=== PATIENT | female | born 1985 | race Caucasian/White ===

== ENCOUNTER 2024-06-04 06:47 | Emergency (ER) | payer MEDICAID, SELFPAY ==
[2024-06-04 06:48] VITALS: BMI 26.6
--- NOTE | 2024-06-04 07:06 | XR_ITS ---
Examination: CT abdomen and pelvis without contrast. Coronal 3-D reconstructions. Sagittal 2-D reconstructions. Date and time of exam:June 04, 2024 0752 hrs. Comparison December 03, 2023 Indications: Fever vomiting right kidney flank pain beginning 2 days ago, diagnosis kidney stones extensive bilateral staghorn calculi with right ureteral stent and 4 mm 6 mm ureteral calculi on CT stone study December 03, 2023 CTDI: vol (mGy): 11 DLP: (mGycm): 594 Technique: Axial images of the abdomen have been obtained, 3 mm slice thickness Intravenous contrast material has not been administered. Low dose protocols were performed. One or more of the following dose reduction techniques were used; automated exposure control, adjustment of the mA and/or KV according to patient size, use of iterative reconstruction technique. Findings: Liver cysts, the largest 18 mm Hepatomegaly 18 cm Borderline splenomegaly AP dimension 12 cm Contracted gallbladder No pancreatic mass Numerous bilateral renal calculi Perinephric stranding right kidney with mild right hydronephrosis Numerous right ureteral calculi, coronal image 60 measuring 2 mm, 3 mm, 3 mm, 3 mm Aorta normal size No bowel obstruction 12 mm fat-containing umbilical hernia Anteverted uterus with enlarged fundus Mild thickening of the urinary bladder wall up to 3 mm No bladder calculi Adequate bone density Impression: Numerous bilateral renal calculi Mild right hydronephrosis secondary to multiple small ureteral calculi as above Cystitis pattern
--- NOTE | 2024-06-04 07:08 | PD.EDABDPN ---
ED Abdominal Pain RME/HPI General Chief Complaint: Abdominal Pain Stated complaint: RIGHT KIDNEY PAIN, FEVER, VOMITING Time seen by provider: 06/04/24 06:52 Arrival date/time: 06/04/24 06:47 RME / HPI RME / HPI narrative: This section includes all my notes and documentations, including HPI, PE, and ED course. Bobby Palacios MD HPI: 38-year-old female here with several days of right-sided flank pain with fever and chills and bodyaches and malaise. With cough and congestion. No other complaints. ROS: All negative except as documented in HPI. Physical Exam: General: Alert and oriented. In severe pain. Eyes: Conjunctivae and lids clear. ENT: No nasal congestion. Pharynx normal. TM normal bilaterally. Neck: Supple. Heart: RRR. Lungs: No respiratory distress. Good air movement. No rhonchi, wheezing, rales. Abdomen: Soft and nontender. Normal bowel sounds. No distension. No rebound or guarding. Back: No CVA tenderness. Skin: Warm and dry. Neuro: Alert and oriented X 3. I reviewed all diagnostic test results. My interpretation of the chest x-ray is no acute findings. My review of the abdominal CT report is mildright hydronephrosis secondary to multiple small ureteral calculi and cystitis pattern. Blood tests and urine tests remarkable for WBC 19.1, LA 1.0, and bacteriuria. Influenza positive. At this point, diagnoses include pyelonephritis and ureteral stones and influenza. Treatment here included IV fluid and Zofran and Toradol and Tylenol and morphine and Rocephin. Significant improvement noted. Recommended a trial of outpatient treatment. Based on my best medical judgment, made decision no further evaluation or treatment indicated at this time. Patient understands and agrees to the discharge instructions customized and printed, see below. Discharge instructions from Dr. Palacios: 1. After evaluation, you have have right-sided kidney infection. And many little stones came out of the right kidney and you are passing them. And you have influenza. 2. Take cefdinir to kill the germs causing the infection.? Increase oral fluid to flush it out.? Maintain clear urine.? If dark or yellow, increase oral fluid. Take Tamiflu for influenza. 3. Zofran for nausea/vomiting.? Toradol 10 mg every 8 hours today and tomorrow scheduled and as needed. Tylenol with codeine for severe pain. 4. See a private doctor on 06/07/2024 for recheck.? Ask to check the final urine culture results from today to make sure cefdinir doesn't need to be changed due to resistance. 5. Seek immediate medical care with worsening, fever, or with any concerns. Bobby Palacios MD Related Data Previous Rx's ?Medication ?Instructions ?Recorded atomoxetine 40 mg capsule 40 mg PO QDAY ADHD #30 caps 10/29/23 hydrochlorothiazide 25 mg tablet 25 mg PO QDAY stone prevention #30 10/29/23 tabs tramadol 50 mg tablet 50 mg PO BID PRN pain (scale score 10/29/23 7-10) #20 tabs acetaminophen 500 mg capsule 1,000 mg (2 x 500 mg) PO Q6H PRN 12/04/23 fever or pain #30 caps ciprofloxacin HCl 500 mg tablet 500 mg PO Q12H #14 tabs 12/04/23 (Cipro) ibuprofen 800 mg tablet 800 mg PO TID PRN pain #30 tabs 12/04/23 acetaminophen 300 mg-codeine 30 mg 2 tab PO TID PRN pain #20 tabs 06/04/24 tablet cefdinir 300 mg capsule 300 mg PO BID #14 caps 06/04/24 ketorolac 10 mg tablet 10 mg PO Q8H PRN pain 5 days #14 06/04/24 tabs ondansetron 4 mg disintegrating 4 mg PO TID PRN nausea and 06/04/24 tablet vomiting 5 days #10 tabs oseltamivir 75 mg capsule (Tamiflu) 75 mg PO BID 5 days #10 caps 06/04/24 Allergies Allergy/AdvReac Type Severity Reaction Status Date / Time amoxicillin Allergy Intermediate Hives Verified 02/17/24 09:44 Penicillins Allergy Intermediate Hives Verified 02/17/24 09:44 egg Allergy Mild Nausea Verified 02/17/24 09:44 peas Allergy Mild Rash Verified 02/17/24 09:44 Course Quality Measures none Orders Category Date Time Status Bedside COVID-19 Antigen Test NOW Care 06/04/24 07:27 Active Bedside Influenza A&B Antigen Test NOW Care 06/04/24 07:[address] abdomen pelvis wo con Stat Exams 06/04/24 07:06 Completed XR chest 1V portable Stat Exams 06/04/24 07:27 Completed Blood Culture (Lab) Stat Lab 06/04/24 07:42 Received CBC Stat Lab 06/04/24 07:26 Completed CMP [Comprehensive Metabolic Panel] Stat Lab 06/04/24 07:26 Completed CRP [C-Reactive Protein] Stat Lab 06/04/24 07:26 Completed ESR [Sed Rate (ESR)] Stat Lab 06/04/24 07:26 Completed Lactate (Lactic Acid) Stat Lab 06/04/24 07:42 Completed Magnesium Stat Lab 06/04/24 07:26 Completed Procalcitonin Stat Lab 06/04/24 07:26 Completed UA, C/S IF [Urinalysis, C/S if Indicated] Stat Lab 06/04/24 07:14 Completed Urine Culture Stat Lab 06/04/24 07:14 Received Acetaminophen Ivpb [Ofirmev Inj] Med 06/04/24 07:26 Discontinued 1,000 mg in 100 ml IV NOW Ketorolac Inj [Toradol Inj] Med 06/04/24 07:05 Discontinued 30 mg IVP X1 ONE Morphine Inj Med 06/04/24 07:05 Discontinued 4 mg IVP X1 ONE Ondansetron Inj [Zofran Inj] Med 06/04/24 07:05 Discontinued 4 mg IV X1 ONE Sodium Chloride 0.9% 1000 ml [Ns] 1,000 ml Med 06/04/24 07:05 Discontinued IV 999 mls/hr Sodium Chloride 0.9% 1000 ml [Ns] 1,000 ml Med 06/04/24 08:04 Discontinued IV 999 mls/hr Sodium Chloride 0.9% 1000 ml [Ns] 1,000 ml Med 06/04/24 08:05 Discontinued IV 999 mls/hr cefTRIAXone [Rocephin] 1,000 mg Med 06/04/24 07:26 Discontinued Sodium Chloride 0.9% (P) [Ns 0.9% (P)] 50 ml IV X1 Vital Signs Vital signs: Vital Signs Temperature 100.6 F H 06/04/24 07:09 Pulse Rate 132 H 06/04/24 07:09 Respiratory Rate 22 H 06/04/24 07:09 Blood Pressure 133/82 H 06/04/24 07:09 Pulse Oximetry (%) 98 06/04/24 07:09 Oxygen Delivery Method Room Air 06/04/24 07:09 Abdominal Pain MDM Patient data External records reviewed:: [facility] previous records Clinical information provided by:: patient Social determinants that could affect healthcare access:: none Patient has the following chronic illnesses:: Recurrent kidney stones How is presenting disease/condition affected by chronic disease/condition?: exacerbated by Evaluation data The following diagnostics were reviewed and interpreted by me:: lab results and radiology exam(s) Lab and/or radiology exams considered but not ordered:: None Interpretation Summary: Pyelonephritis and ureteral stones and influenza Medications / Prescriptions Medications or Prescriptions considered but not ordered:: None Medication administrations:: Medication Administration History Discontinued Medications Sodium Chloride (Ns) 1,000 mls @ 999 mls/hr IV .Q1H1M ONE Stop: 06/04/24 08:05 Last Infusion: 06/04/24 08:35 Dose: Infused Documented By: Admin: 06/04/24 07:35 Dose: 999 mls/hr Documented By: ELIEZER Acetaminophen (Ofirmev Inj) 1,000 mg in 100 mls @ 250 mls/hr IV NOW ONE Stop: 06/04/24 07:49 Last Infusion: 06/04/24 08:45 Dose: Infused Documented By: Admin: 06/04/24 08:12 Dose: 250 mls/hr Documented By: ANTELMO Ceftriaxone Sodium 1,000 mg/ (Sodium Chloride) 50 mls @ 100 mls/hr IV X1 ONE Stop: 06/04/24 07:55 Last Infusion: 06/04/24 08:44 Dose: Infused Documented By: Admin: 06/04/24 08:14 Dose: 100 mls/hr Documented By: ANTELMO Sodium Chloride (Ns) 1,000 mls @ 999 mls/hr IV .Q1H1M ONE Stop: 06/04/24 09:04 Last Infusion: 06/04/24 09:07 Dose: Infused Documented By: Admin: 06/04/24 08:19 Dose: 999 mls/hr Documented By: ANTELMO Sodium Chloride (Ns) 1,000 mls @ 999 mls/hr IV .Q1H1M ONE Stop: 06/04/24 09:05 Last Admin: 06/04/24 09:43 Dose: 999 mls/hr Documented By: ANTELMO Ketorolac Tromethamine (Ketorolac Inj 30 Mg/Ml Vial) 30 mg IVP X1 ONE Stop: 06/04/24 07:06 Last Admin: 06/04/24 07:36 Dose: 30 mg Documented By: RD Morphine Sulfate (Morphine Sulf Inj 10 Mg/Ml Vial) 4 mg IVP X1 ONE Stop: 06/04/24 07:06 Last Admin: 06/04/24 07:36 Dose: 4 mg Documented By: RD Ondansetron HCl (Ondansetron Inj 2 Mg/Ml Inj 2 Ml) 4 mg IV X1 ONE; Protocol Stop: 06/04/24 07:06 Last Admin: 06/04/24 07:35 Dose: 4 mg Documented By: ELIEZER IV fluid and Zofran and Tylenol and Toradol and morphine and Rocephin Consultations Consultation(s) initiated? (list below): No Diagnosis Differential diagnosis abdominal pain: acute appendicitis, calculus of kidney, diverticulitis, endometriosis, gastroenteritis, small bowel obstruction and other (Sepsis, influenza, COVID, UTI, pyelonephritis) Most likely diagnosis given after review of the tests above:: Pyelonephritis and ureteral stones and influenza Admission Indicated Admission indicated?: not indicated Explain why admission is indicated or not indicated:: Admission criteria not met with significant improvement Admission Request Was there a request for admission?: No Disposition Plan Disposition Plan: Discharge Discharge Attestation Discharge Attestation: The patient and all family members were given an opportunity to ask questions and understood the discharge instructions. Discharge instructions specifically effects, indications for sooner follow up or return to the emergency department, and the expected course of current diagnosis. Patient condition: Stable Discharge Plan Plan Patient Disposition: HOME (Self Care) Prescriptions/Referrals Prescriptions/Med Rec: New acetaminophen-codeine 300-30 mg tablet 2 tab PO TID MDD 6 PRN (Reason: pain) Qty: 20 0RF ketorolac 10 mg tablet 10 mg PO Q8H PRN (Reason: pain) 5 Days Qty: 14 0RF ondansetron 4 mg tablet,disintegrating 4 mg PO TID PRN (Reason: nausea and vomiting) 5 Days Qty: 10 0RF cefdinir 300 mg capsule 300 mg PO BID Qty: 14 0RF oseltamivir [Tamiflu] 75 mg capsule 75 mg PO BID 5 Days Qty: 10 0RF No Action hydrochlorothiazide 25 mg tablet 25 mg PO QDAY Qty: 30 2RF atomoxetine 40 mg capsule 40 mg PO QDAY Qty: 30 2RF tramadol 50 mg tablet 50 mg PO BID PRN (Reason: pain (scale score 7-10)) Qty: 20 0RF acetaminophen 500 mg capsule 1,000 mg PO Q6H PRN (Reason: fever or pain) Qty: 30 0RF ibuprofen 800 mg tablet 800 mg PO TID PRN (Reason: pain) Qty: 30 0RF ciprofloxacin HCl [Cipro] 500 mg tablet 500 mg PO Q12H Qty: 14 0RF Rx Instructions: administer dose at least 2 hrs before/6 hrs after dairy products, calcium, zinc, and/or iron-containing products Referrals: Alexis ([facility]),RAQUEL Roberson [Primary Care Provider] - In 1 week Problem List Clinical Impression: Kidney infection, Kidney stone, Influenza Patient/Caregiver Discharge Instructions Discharge Activity: activity as tolerated Education Materials: ED Influenza (Adult), ED Pyelonephritis, Female (Adult), ED Kidney Stone w/ Colic Additional Instructions: Discharge instructions from Dr. Palacios: 1. After evaluation, you have have right-sided kidney infection. And many little stones came out of the right kidney and you are passing them. And you have influenza. 2. Take cefdinir to kill the germs causing the infection.? Increase oral fluid to flush it out.? Maintain clear urine.? If dark or yellow, increase oral fluid. Take Tamiflu for influenza. 3. Zofran for nausea/vomiting.? Toradol 10 mg every 8 hours today and tomorrow scheduled and as needed. Tylenol with codeine for severe pain. 4. See a private doctor on 06/07/2024 for recheck.? Ask to check the final urine culture results from today to make sure cefdinir doesn't need to be changed due to resistance. 5. Seek immediate medical care with worsening, fever, or with any concerns. Print Language: Latvian Stand Alone Forms: [employer] Info., Patient Portal Info Letter
[2024-06-04 07:09] VITALS: BP 133/82; PULSE 132; RESP 22; TEMP 38.1; O2SAT 98
--- NOTE | 2024-06-04 07:27 | XR_ITS ---
Examination: AP chest single view Technique one AP portable upright chest single view Exam date and time: June 04, 2024 0808 hrs. Comparison December 03, 2023 Indications: Shortness of breath today. Findings: Poor inspiratory effort Normal heart size Soft nodular densities in the left upper lobe which may be artifactual Right lung clear Impression: Recommend AP lordotic chest follow-up to exclude parenchymal disease in left upper lobe
[2024-06-04] MEDS: SODIUM CHLORIDE 0.9% 1000 ML 1,000 ML 999 ML IV ×3 (07:35→09:43)
[2024-06-04] MEDS: ONDANSETRON INJ 2 MG/ML INJ 2 ML 4 MG IV (07:35)
[2024-06-04] MEDS: KETOROLAC INJ 30 MG/ML VIAL IVP (07:36)
[2024-06-04] MEDS: MORPHINE SULF INJ 10 MG/ML VIAL 4 MG IVP (07:36)
[2024-06-04 07:55] LABS: Basophils # (Auto) 0.1 Thou/mm3 (0.0-0.2); Basophils % (Auto) 1 % (0-2.5); Eosinophils # (Auto) 0.1 Thou/mm3 (0.0-0.5); Eosinophils % (Auto) 1 % (0-10); Hematocrit 35.3 % (36.0-46.0); Hemoglobin 10.7 g/dL (12.0-16.0); Immature Granulocytes % (Auto) 1 % (0-0); Immature Granulocytes Auto 0.11 Thou/mm3 (0.00-0.00); Lymphocytes # (Auto) 1.5 Thou/mm3 (1.0-4.8); Lymphocytes % (Auto) 8 % (10-50); Mean Corpuscular HGB Conc 30.3 g/dl (31.0-37.0); Mean Corpuscular Hemoglobin 22.5 pg (25.0-35.0); Mean Corpuscular Volume 74 fL (80-100); Monocytes # (Auto) 1.4 Thou/mm3 (0.0-0.8); Monocytes % (Auto) 7 % (0-12); Neutrophils # (Auto) 15.9 Thou/mm3 (1.8-7.7); Neutrophils % (Auto) 83 % (37-80); Nucleated Red Blood Cell % 0 /100 WBC (0); Platelet Count 374 Thou/mm3 (140-440); RDW Standard Deviation 45.6 fL (36.4-46.3); Red Blood Count 4.76 Miln/mm3 (4.00-5.20); White Blood Count 19.1 Thou/mm3 (3.6-11.0)
[2024-06-04 08:10] LABS: Sed Rate (ESR) 74 mm/hr (0-20)
[2024-06-04] MEDS: ACETAMINOPHEN IVPB 1,000 MG/100 ML VIAL 250 MG IV (08:12)
[2024-06-04] MEDS: cefTRIAXone 1,000 MG in SODIUM CHLORIDE 0.9% (P) 50 ML 100 MG IV (08:14)
[2024-06-04 08:25] LABS: Alanine Aminotransferase 18 U/L (10-49); Albumin, Serum 5.3 gm/dL (3.5-5.0); Albumin/Globulin Ratio 1.6 (1.2-2.2); Alkaline Phosphatase 135 U/L (46-116); Anion Gap 8 (7-16); Aspartate Amino Transferase 17 U/L (0-34); BUN/Creatinine Ratio 7 Ratio (12-20); Bilirubin,Total 0.5 mg/dL (0.3-1.2); Blood Urea Nitrogen 7 mg/dL (9-23); C-Reactive Protein 6.6 mg/dL (0.0-0.9); Calcium 9.7 mg/dL (8.3-10.6); Calcium (Corrected) 9.7 mg/dL (8.5-10.1); Carbon Dioxide 24.6 mMol/L (20.0-31.0); Chloride 102 mMol/L (98-107); Estimated Creatinine Clearance 77.3 mL/min (>60); Globulin 3.4 gm/dL (2.3-3.5); Glucose 123 mg/dL (74-106); Magnesium 1.8 mg/dL (1.6-2.6); Osmolality,Calculated 269 (275-295); Potassium 3.8 mMol/L (3.4-5.1); Procalcitonin 0.18 ng/ml (0.0-0.49); Sodium 135 mMol/L (136-145); Total Protein 8.7 gm/dL (5.7-8.2); eGFR > 60 See Note
[2024-06-04 08:48] LABS: Collection Type, Urine Clean Catch
[2024-06-04 09:35] LABS: Bacteria,Urine 1+; Bilirubin,Urine Negative (Negative); Blood,Urine 2+ (Negative); Clarity,Urine Turbid (Clear/Hazy); Color,Urine Lt-Yellow (Lt Yel-Yel); Glucose, Urine Negative (Negative); Ketones,Urine Negative (Negative); Leukocyte Esterase,Urine Positive (Negative); Nitrite,Urine Negative (Negative); PH,Urine 7.5 (5.0-7.0); Protein,Urine Trace (Neg - Trace); RBC,Urine 14 /hpf (0-3); Squamous Epithelial Cell,Urine 8 /hpf (0-5); Urobilinogen,Urine Negative mg/dL (0.0-1.0); WBC,Urine 97 /hpf (0-5)
[2024-06-04 09:36] LABS: Culture Indicated,Urine Yes
[2024-06-04 11:25] VITALS: BP 121/84; PULSE 110; RESP 16; TEMP 37.1; O2SAT 96
== END 2024-06-04 11:25 | disposition home or self-care (01) ==
PROVIDERS: Emergency Provider Emergency Medicine; PCP Nurse Practitioner Family
DX: N20.2 Calculus of kidney with calculus of ureter (principal); J11.1 Influenza due to unidentified influenza virus with other respiratory manifestations
CPT/HCPCS: 36415; 71045; 74176; 80053; 81001; 83605; 83735; 84145; 85025; 85652; 86140; 87040; 87086; 87400; 87811; 96361; 96365; 96368; 96375; 99284; J0131; J0696; J1885; J2270; J2405; J7030; J7050

== ENCOUNTER 2024-10-21 17:30 | Emergency (ER) | payer MEDICAID, SELFPAY ==
[2024-10-21 17:31] VITALS: BMI 28.2
--- NOTE | 2024-10-21 17:33 | EKG_ITS ---
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
[2024-10-21 18:08] VITALS: BP 137/101; BP 152/100; PULSE 106; RESP 20; TEMP 37.5; O2SAT 100
--- NOTE | 2024-10-21 18:09 | XR_ITS ---
Examination: PA lateral chest 2 views TECHNIQUE: Upright PA and lateral chest 2 views Date and time: October 21, 2024, 1924 hours INDICATIONS: Chest pain today FINDINGS: Stable pulmonary nodule left upper lobe compared with June 04, 2024 and December 03, 2023 Normal heart size No unremarkable pneumonia or pulmonary edema IMPRESSION: No interval pneumonia or pulmonary edema
--- NOTE | 2024-10-21 18:10 | PD.EDRME ---
Rapid Medical Screening Exam RME Arrival date/time: 10/21/24 17:30 38-year-old female presents ER today for complaints of chest pain Chief Complaint: Chest Pain Time Seen by Provider: 10/21/24 18:14 Vital signs: Vital Signs Temperature 99.5 F 10/21/24 18:08 Pulse Rate 106 H 10/21/24 18:08 Respiratory Rate 20 10/21/24 18:08 Blood Pressure 152/100 H 10/21/24 18:08 Pulse Oximetry (%) 100 10/21/24 18:08 Oxygen Delivery Method Room Air 10/21/24 18:08
[2024-10-21 19:01] LABS: Basophils # (Auto) 0.1 Thou/mm3 (0.0-0.2); Basophils % (Auto) 1 % (0-2.5); Eosinophils # (Auto) 0.4 Thou/mm3 (0.0-0.5); Eosinophils % (Auto) 4 % (0-10); Hematocrit 29.9 % (36.0-46.0); Hemoglobin 9.2 g/dL (12.0-16.0); Immature Granulocytes % (Auto) 0 % (0-0); Immature Granulocytes Auto 0.02 Thou/mm3 (0.00-0.00); Lymphocytes # (Auto) 2.8 Thou/mm3 (1.0-4.8); Lymphocytes % (Auto) 27 % (10-50); Mean Corpuscular HGB Conc 30.8 g/dl (31.0-37.0); Mean Corpuscular Hemoglobin 21.8 pg (25.0-35.0); Mean Corpuscular Volume 71 fL (80-100); Monocytes % (Auto) 9 % (0-12); Neutrophils # (Auto) 6.2 Thou/mm3 (1.8-7.7); Neutrophils % (Auto) 59 % (37-80); Nucleated Red Blood Cell % 0 /100 WBC (0); Platelet Count 328 Thou/mm3 (140-440); RDW Standard Deviation 45.1 fL (36.4-46.3); Red Blood Count 4.22 Miln/mm3 (4.00-5.20); White Blood Count 10.5 Thou/mm3 (3.6-11.0)
--- NOTE | 2024-10-21 19:17 | EDNOTE_ITS ---
ED Chest Pain RME/HPI General Chief Complaint: Chest Pain Stated Complaint: CHEST PAIN, HTN, RIGHT ARM NUMBNESS, TEETH HURT Time Seen by Provider: 10/21/24 18:14 Arrival date/time: 10/21/24 17:30 RME / HPI RME / HPI narrative: 10/21/24 17:30 38-year-old female presents ER today for complaints of chest pain This section includes all my notes and documentations, including HPI, PE, and ED course. Bobby Palacios MD HPI: 38-year-old female here with 30-minute history of chest tightness and other symptoms intermittently. Symptoms can include intense fear, pounding and racing heart, sweating, chills, shaking, trouble breathing, stomach pain, nausea, numbness and tingling in the hands and feet and face, confusion, hot flashes, and feeling faint. No other complaints. ROS: All negative except as documented in HPI. Physical Exam: General: Alert and oriented. No acute distress when remaining still. High BP noted. Eyes: Conjunctivae and lids clear. ENT: No nasal congestion. Neck: Supple. Heart: RRR. Lungs: No respiratory distress. Good air movement. No rhonchi, wheezing, rales. Abdomen: Soft and nontender. Skin: Warm and dry. Neuro: Alert and oriented X 3. I reviewed all diagnostic test results. My interpretation of the EKG is sinus rhythm with no acute ST?T changes. My interpretation of the chest x-ray is NAD. Blood tests unremarkable, including their troponin. At this point, diagnoses include chest pain and high BP. Treatment here included Metoprolol. Significant improvement noted. Recommended more outpatient care. Based on my best medical judgment, made decision no further evaluation or treatment indicated at this time. Patient understands and agrees to the discharge instructions customized and printed, see below. Discharge instructions from Dr. Palacios: 1. After extensive evaluation, there is no life-threatening condition.? Such as heart attack or pulmonary embolism (blood clots in your lungs) or pneumothorax (collapsed lung). 2. Will but your BP was high and heart rate was fast. 3. Take metoprolol ER 100 mg daily. You will live longer with lower BP and slower heart rate. 4. See a private doctor on 10/24/2024. To make sure there is no serious underlying heart condition, ask to help you get more tests for your heart that cannot be done here in the ER.? Such as Holter Monitor (cardiac monitoring at home from a day to even a month), heart stress test (on treadmill or with medication), echocardiogram (imaging of your heart structures), heart catherization (checking for blockages in your heart arteries), and a referral to see a Ict Support Engineer.? Ask to help you stay healthy, with good management of your BP, helping you to prevent future heart attacks and strokes, and with regular physical exam and health maintenance. 5. Seek immediate medical care with worsening or with any concerns.?? Bobby Palacios MD Related Data Previous Rx's ?Medication ?Instructions ?Recorded atomoxetine 40 mg capsule 40 mg PO QDAY ADHD #30 caps 10/29/23 hydrochlorothiazide 25 mg tablet 25 mg PO QDAY stone p revention #30 10/29/23 tabs tramadol 50 mg tablet 50 mg PO BID PRN pain (scale score 10/29/23 7-10) #20 tabs acetaminophen 500 mg capsule 1,000 mg (2 x 500 mg) PO Q6H PRN 12/04/23 fever or pain #30 caps ciprofloxacin HCl 500 mg tablet 500 mg PO Q12H #14 tab s 12/04/23 (Cipro) ibuprofen 800 mg tablet 800 mg PO TID PRN pain #30 t abs 12/04/23 acetaminophen 300 mg-codeine 30 mg 2 tab PO TID PRN pa in #20 tabs 06/04/24 tablet cefdinir 300 mg capsule 300 mg PO BID #14 caps 06/04 metoprolol succinate 100 mg 100 mg PO QDAY #30 ea 09/24 capsule sprinkle, ext. release 24 hr Allergies Allergy/AdvReac Type Severity Reaction Status Date / Time amoxicillin Allergy Intermediate Hives Verified 10/21/24 17:33 Penicillins Allergy Intermediate Hives Verified 10/21/24 17:33 egg Allergy Mild Nausea Verified 10/21/24 17:33 peas Allergy Mild Rash Verified 10/21/24 17:33 Review of Systems Review of Systems Systems Reviewed: All systems reviewed, normal except as documented Past Medical History Past Medical History CARDIAC: Positive Hypercholesterolemia and Hypertension GENITOURINARY: Positive Genitourinary Disorders and Kidney Stones PSYCHO/SOCIAL: Positive Depression and Attention Deficit Hyperactivity Disorder Surgical History SURGICAL: Positive Tubal Ligation and Section Social History SMOKING STATUS: Current every day smoker ED Exam Narrative Physical exam: Refer to HPI above Course Course Course Narrative: CXR is ordered for determining the etiology of shortness of breath. Quality Measures none Orders Category Date Time Status EKG (ED ONLY) *Do not use* NOW Care 10/21/24 17:33 Completed EKG (ED Only) Stat Exams 10/21/24 17:33 Draft XR chest 2V Stat Exams 10/21/24 18:09 Completed BNP [B-Type Natriuretic Peptide] Stat Lab 10/21/24 18:43 Completed CBC Stat Lab 10/21/24 18:43 Completed Comprehensive Metabolic Panel Stat Lab 10/21/24 18:43 Completed Free T4 (Free Thyroxine) Stat Lab 10/21/24 18:43 Completed HCG,Qualitative Serum Stat Lab 10/21/24 18:43 Completed Lipase Stat Lab 10/21/24 18:43 Completed Magnesium Stat Lab 10/21/24 18:43 Completed Thyroid Stimulating Hormone Stat Lab 10/21/24 18:43 Completed Troponin I Stat Lab 10/21/24 18:43 Completed Metoprolol Tartrate [Lopressor] Med 10/21/24 20:02 Discontinued 50 mg PO X1 ONE Vital Signs Vital signs: Vital Signs Temperature 99.5 F 10/21/24 18:08 Pulse Rate 106 H 10/21/24 18:08 Respiratory Rate 20 10/21/24 18:08 Blood Pressure 152/100 H 10/21/24 18:08 Pulse Oximetry (%) 100 10/21/24 18:08 Oxygen Delivery Method Room Air 10/21/24 18:08 Chest Pain MDM Narrative MDM Narrative:: Scribe Attestation: Elizabeth Cheema, ruiz scribing for and in the presence of Dr. Palacios. Provider Notation: Although this document has been carefully reviewed, there may still be some phonetic and other typographical errors.? These errors are purely grammatical due to imperfections in the software program and should not be construed in any way to? compromise the substance of the patient's medical care during this visit. 38-year-old female here with 30-minute history of chest tightness and other symptoms intermittently. Symptoms can include intense fear, pounding and racing heart, sweating, chills, shaking, trouble breathing, stomach pain, nausea, numbness and tingling in the hands and feet and face, confusion, hot flashes, and feeling faint. No other complaints. Patient data External records reviewed:: [facility] previous records (Reviewed prior ED records from 06/04/24. Patient was seen for Influenza.) Clinical information provided by:: patient Social determinants that could affect healthcare access:: none Patient has the following chronic illnesses:: Hypercholesterolemia, Hypertension, Kidney Stones, Depression and Attention Deficit Hyperactivity Disorder How is presenting disease/condition affected by chronic disease/condition?: exacerbated by Evaluation data The following diagnostics were reviewed and interpreted by me:: lab results, radiology exam(s) and EKG tracing(s) Lab and/or radiology exams considered but not ordered:: None Interpretation Summary: I reviewed all diagnostic test results. My interpretation of the EKG is sinus rhythm with no acute ST?T changes. My interpretation of the chest x-ray is NAD. Blood tests unremarkable, including their troponin. Medications / Prescriptions Medications or Prescriptions considered but not ordered:: None Medication administrations:: Medication Administration History Discontinued Medications Metoprolol Tartrate (Metoprolol Tartrate 25 Mg Tablet) 50 mg PO X1 ONE Stop: 10/21/24 20:03 Last Admin: 10/21/24 20:11 Dose: 50 mg Documented By: NICKOLAS Metoprolol Consultations Consultation(s) initiated? (list below): No Diagnosis Chest Pain Differential Diagnosis: pneumothorax, stable angina, unstable angina pectoris, atypical chest pain, st elevation myocardial infarction, costochondritis, chest pain, biliary colic and other (Psychogenic) Most likely diagnosis given after review of the tests above:: Chest pain and high BP. Admission Indicated Admission indicated?: not indicated Explain why admission is indicated or not indicated:: With significant improvement, there was no indication for admission.? Admission Request Was there a request for admission?: No Disposition Plan Disposition Plan: Discharge Discharge Attestation Discharge Attestation: The patient and all family members were given an opportunity to ask questions and understood the discharge instructions. Discharge instructions specifically effects, indications for sooner follow up or return to the emergency department, and the expected course of current diagnosis. Patient condition: Stable Discharge Plan Plan Patient Disposition: HOME (Self Care) Prescriptions/Referrals Prescriptions/Med Rec: New metoprolol succinate 100 mg capsule,sprinkle,ER 24hr 100 mg PO QDAY Qty: 30 1RF No Action hydrochlorothiazide 25 mg tablet 25 mg PO QDAY Qty: 30 2RF atomoxetine 40 mg capsule 40 mg PO QDAY Qty: 30 2RF tramadol 50 mg tablet 50 mg PO BID PRN (Reason: pain (scale score 7-10)) Qty: 20 0RF acetaminophen 500 mg capsule 1,000 mg PO Q6H PRN (Reason: fever or pain) Qty: 30 0RF ibuprofen 800 mg tablet 800 mg PO TID PRN (Reason: pain) Qty: 30 0RF ciprofloxacin HCl [Cipro] 500 mg tablet 500 mg PO Q12H Qty: 14 0RF Rx Instructions: administer dose at least 2 hrs before/6 hrs after dairy products, calcium, zinc, and/or iron-containing products acetaminophen-codeine 300-30 mg tablet 2 tab PO TID MDD 6 PRN (Reason: pain) Qty: 20 0RF cefdinir 300 mg capsule 300 mg PO BID Qty: 14 0RF Referrals: No Primary/Family,Physician [Primary Care Provider] - In 1 week Problem List Clinical Impression: Chest pain Patient/Caregiver Discharge Instructions Discharge Activity: activity as tolerated Education Materials: ED Hypertension, New (Begin Treatment) Additional Instructions: Discharge instructions from Dr. Palacios: 1. After extensive evaluation, there is no life-threatening condition.? Such as heart attack or pulmonary embolism (blood clots in your lungs) or pneumothorax (collapsed lung). 2. Will but your BP was high and heart rate was fast. 3. Take metoprolol ER 100 mg daily. You will live longer with lower BP and slower heart rate. 4. See a private doctor on 10/24/2024. To make sure there is no serious underlying heart condition, ask to help you get more tests for your heart that cannot be done here in the ER.? Such as Holter Monitor (cardiac monitoring at home from a day to even a month), heart stress test (on treadmill or with medication), echocardiogram (imaging of your heart structures), heart catherization (checking for blockages in your heart arteries), and a referral to see a Ict Support Engineer.? Ask to help you stay healthy, with good management of your BP, helping you to prevent future heart attacks and strokes, and with regular physical exam and health maintenance. 5. Seek immediate medical care with worsening or with any concerns.?? Print Language: Macedonian Stand Alone Forms: Kimberly Award Info., Patient Portal Info Letter
[2024-10-21 19:19] VITALS: BP 153/102; BP 160/107; PULSE 91; RESP 19; TEMP 36.8; O2SAT 99
[2024-10-21 20:03] LABS: B-Type Natriuretic Peptide < 20 pg/mL (0-100)
[2024-10-21 20:11] VITALS: BP 146/106; PULSE 82
[2024-10-21] MEDS: METOPROLOL TARTRATE 25 MG TABLET 50 MG PO (20:11)
[2024-10-21 20:13] LABS: HCG,Qualitative Serum Negative
[2024-10-21 21:00] VITALS: BP 146/100; PULSE 72; RESP 17; TEMP 37.1; O2SAT 100
[2024-10-21 21:17] LABS: Alanine Aminotransferase 24 U/L (10-49); Albumin, Serum 4.6 gm/dL (3.5-5.0); Albumin/Globulin Ratio 1.6 (1.2-2.2); Alkaline Phosphatase 124 U/L (46-116); Anion Gap 11 (7-16); Aspartate Amino Transferase 23 U/L (0-34); BUN/Creatinine Ratio 8 Ratio (12-20); Bilirubin,Total 0.3 mg/dL (0.3-1.2); Blood Urea Nitrogen 8 mg/dL (9-23); Calcium 9.1 mg/dL (8.3-10.6); Calcium (Corrected) 9.1 mg/dL (8.5-10.1); Carbon Dioxide 25.3 mMol/L (20.0-31.0); Chloride 100 mMol/L (98-107); Estimated Creatinine Clearance 79.5 mL/min (>60); Globulin 2.9 gm/dL (2.3-3.5); Glucose 98 mg/dL (74-106); Lipase 31 U/L (12-53); Osmolality,Calculated 270 (275-295); Potassium 3.6 mMol/L (3.4-5.1); Sodium 136 mMol/L (136-145); Total Protein 7.5 gm/dL (5.7-8.2); Troponin I < 0.020 ng/mL (0.0-0.045); eGFR > 60 See Note
[2024-10-21 21:27] LABS: Magnesium 1.8 mg/dL (1.6-2.6)
[2024-10-21 21:32] LABS: Thyroid Stimulating Hormone 1.48 uIU/mL (0.55-4.78)
== END 2024-10-21 21:00 | disposition home or self-care (01) ==
PROVIDERS: Nurse Practitioner Primary Care; Emergency Provider Emergency Medicine
DX: R07.9 Chest pain, unspecified (principal); E78.00 Pure hypercholesterolemia, unspecified; I10 Essential (primary) hypertension; F17.210 Nicotine dependence, cigarettes, uncomplicated
CPT/HCPCS: 36415; 71046; 80053; 83690; 83735; 83880; 84439; 84443; 84484; 84703; 85025; 93005; 99283; A9270

== ENCOUNTER 2024-11-11 16:55 | Emergency (ER) | payer MEDICAID, SELFPAY ==
[2024-11-11 17:38] VITALS: BP 137/98; PULSE 141; RESP 18; TEMP 38.4; O2SAT 97; BMI 28.2
--- NOTE | 2024-11-11 17:48 | XR_ITS ---
Examination: PA lateral chest 2 views TECHNIQUE: Upright PA lateral chest 2 views Date and time: November 11, 2024 1804 hours Comparison October 21, 2024 INDICATIONS: Chest pain nausea vomiting beginning 2 days ago FINDINGS: Normal heart size Stable nodular parenchymal disease in the left upper lobe, noted on the chest x-ray June 04, 2024 as well as December 03, 2023 No interval pneumonia or pulmonary edema Normal heart size. IMPRESSION: No change in nodular parenchymal disease in the left upper lobe compared to chest films dating to December 03, 2023, clinical correlation advised Follow-up elective CT chest without contrast would be helpful in assessing the nature of the parenchymal disease in the left upper lobe
--- NOTE | 2024-11-11 17:48 | XR_ITS ---
Examination: CT abdomen and pelvis without contrast. Coronal 3-D reconstructions. Sagittal 2-D reconstructions. Date and time of exam:November 11, 2024 1940 hours Comparison June 04, 2024 INDICATIONS: Bilateral abdominal pain today Technique: Axial images of the abdomen have been obtained, 3 mm slice thickness Intravenous contrast material has not been administered. Low dose protocols were performed. One or more of the following dose reduction techniques were used; automated exposure control, adjustment of the mA and/or KV according to patient size, use of iterative reconstruction technique. Findings: Small benign liver cysts Contracted gallbladder No pancreatic mass Numerous bilateral renal calculi with perinephric stranding Ureteral stents noted no hydronephrosis No bowel obstruction Normal appendix Anteverted uterus No diverticulitis Air in the urinary bladder Urinary bladder wall thickening up to 4 mm IMPRESSION: Numerous bilateral renal calculi, no hydronephrosis Ureteral stents satisfactory position
--- NOTE | 2024-11-11 17:49 | EDRME_ITS ---
Rapid Medical Screening Exam [facility] Arrival date/time: 11/11/24 16:55 38-year-old female presents to the Emergency Department today with complaints of back pain, abdominal pain and fever. Patient reports having lithotripsy yesterday in [place] Chief Complaint: Nausea/Vomiting/Diarrhea Vital signs: Vital Signs Temperature 101.2 F H 11/11/24 17:38 Pulse Rate 141 H 11/11/24 17:38 Respiratory Rate 18 11/11/24 17:38 Blood Pressure 137/98 H 11/11/24 17:38 Pulse Oximetry (%) 97 11/11/24 17:38 Oxygen Delivery Method Room Air 11/11/24 17:38
[2024-11-11 17:59] VITALS: TEMP 38.4
[2024-11-11] MEDS: ACETAMINOPHEN 500 MG TABLET 1000 MG PO (17:59)
[2024-11-11] MEDS: ONDANSETRON ODT 4 MG TABRAP PO (18:12)
--- NOTE | 2024-11-11 18:12 | PC.NURSE ---
patient c/o [place], provider tashi notified, new order for zofran ODT 4mg PO x1 now. Phrmacy aware.
[2024-11-11 18:28] LABS: Collection Type, Urine Clean Catch
[2024-11-11 18:29] LABS: Lactate (Lactic Acid) 1.2 mMol/L (0.4-2.0)
[2024-11-11 18:31] LABS: Basophils % (Auto) 0 % (0-2.5); Eosinophils % (Auto) 0 % (0-10); Hematocrit 31.7 % (36.0-46.0); Hemoglobin 9.9 g/dL (12.0-16.0); Immature Granulocytes % (Auto) 0 % (0-0); Immature Granulocytes Auto 0.06 Thou/mm3 (0.00-0.00); Lymphocytes # (Auto) 0.7 Thou/mm3 (1.0-4.8); Lymphocytes % (Auto) 5 % (10-50); Mean Corpuscular HGB Conc 31.2 g/dl (31.0-37.0); Mean Corpuscular Hemoglobin 22.5 pg (25.0-35.0); Mean Corpuscular Volume 72 fL (80-100); Monocytes % (Auto) 7 % (0-12); Neutrophils # (Auto) 11.7 Thou/mm3 (1.8-7.7); Neutrophils % (Auto) 87 % (37-80); Nucleated Red Blood Cell % 0 /100 WBC (0); Platelet Count 322 Thou/mm3 (140-440); RDW Standard Deviation 49.3 fL (36.4-46.3); White Blood Count 13.5 Thou/mm3 (3.6-11.0)
[2024-11-11 18:35] LABS: Bilirubin,Urine Negative (Negative); Blood,Urine 3+ (Negative); Clarity,Urine Turbid (Clear/Hazy); Color,Urine Yellow (Lt Yel-Yel); Glucose, Urine Negative (Negative); Ketones,Urine Negative (Negative); Leukocyte Esterase,Urine Positive (Negative); Nitrite,Urine Negative (Negative); Protein,Urine 2+ (Neg - Trace); RBC,Urine 313 /hpf (0-3); Specific Gravity,Urine 1.013 (1.001-1.035); Squamous Epithelial Cell,Urine 19 /hpf (0-5); Transitional Epi Cells,Urine 1 /hpf (0-5); Urobilinogen,Urine Negative mg/dL (0.0-1.0); WBC,Urine 486 /hpf (0-5)
[2024-11-11 19:13] LABS: Alanine Aminotransferase 10 U/L (10-49); Albumin, Serum 4.5 gm/dL (3.5-5.0); Albumin/Globulin Ratio 1.7 (1.2-2.2); Alkaline Phosphatase 104 U/L (46-116); Anion Gap 10 (7-16); Aspartate Amino Transferase 19 U/L (0-34); BUN/Creatinine Ratio 5 Ratio (12-20); Bilirubin,Total 0.5 mg/dL (0.3-1.2); Blood Urea Nitrogen 9 mg/dL (9-23); Calcium 9.2 mg/dL (8.3-10.6); Calcium (Corrected) 9.2 mg/dL (8.5-10.1); Carbon Dioxide 23.5 mMol/L (20.0-31.0); Chloride 101 mMol/L (98-107); Creatinine (Component) 1.8 mg/dL (0.6-1.3); Estimated Creatinine Clearance 44.2 mL/min (>60); Globulin 2.7 gm/dL (2.3-3.5); Glucose 148 mg/dL (74-106); Lipase 25 U/L (12-53); Osmolality,Calculated 269 (275-295); Potassium 3.3 mMol/L (3.4-5.1); Procalcitonin 5.77 ng/ml (0.0-0.49); Sodium 134 mMol/L (136-145); Total Protein 7.2 gm/dL (5.7-8.2); eGFR 36 See Note
[2024-11-11 19:26] LABS: HCG,Qualitative Serum Negative
--- NOTE | 2024-11-11 21:25 | PD.EDNV ---
Nausea/Vomit./Diarrhea-RME/HPI General Chief complaint: Nausea/Vomiting/Diarrhea Stated complaint: Vomiting, fever, CHOU, anesthesia yesterday Time Seen by Provider: 11/11/24 19:23 Arrival date/time: 11/11/24 16:55 RME / HPI RME / HPI Narrative: 11/11/24 16:55 38-year-old female presents to the Emergency Department today with complaints of back pain, abdominal pain and fever. Patient reports having lithotripsy yesterday in [place] This section includes all my notes and documentations, including HPI, PE, and ED course. Bobby Palacios MD HPI: 38yo female presents to the ED for complaints of left flank pain, fever, and chills for about 12 hours. Bilateral ureteral stent placement by Dr. Blanchard in [place] yesterday, but was unable to tolerate the pain. No cough or congestion. No other complaints. ROS: All negative except as documented in HPI. Physical Exam: General: Alert and oriented. In severe pain. Fever noted. Eyes: Conjunctivae and lids clear. ENT: No nasal congestion. Neck: Supple. Heart: Tachycardia noted. Lungs: No respiratory distress. Good air movement. No rhonchi, wheezing, rales. Abdomen: Soft and nontender. Normal bowel sounds. No distension. No rebound or guarding. Back: Equivocal left CVA tenderness. Skin: Warm and dry. Neuro: Alert and oriented X 3. I reviewed all diagnostic test results. My interpretation of the chest x-ray is NAD. My review of the CT abdomen pelvis report is NAD. Blood tests remarkable for WBC 13.5, Potassium 3.3, Creatinine 1.8, Procalcitonin 5.77. UA showed 2+ protein, 313 RBC, and 486 WBC. At this point, diagnoses include sepsis, UTI, bilateral ureteral stent placement, NEGAR, and hypokalemia. Treatment here included IV fluid, Zofran, Toradol, Tylenol, morphine, Rocephin, oral potassium, and Rocephin. With no improvement, more treatment included cefepime and vancomycin and then Levophed drip. I discussed the case with our hospitalist.? About the presentation and exam and diagnostics and treatments here.? And possible need of further care in the hospital.? Declined to except the patient due to no urology service here. Waiting for Dr. Blanchard, Urology at [place], to call back. At 6 AM on 11/12/2024, the care of the patient was transferred to Dr Guadarrama. Bobby Palacios MD Related Data Previous Rx's ?Medication ?Instructions ?Recorded atomoxetine 40 mg capsule 40 mg PO QDAY ADHD #30 caps 10/29/23 hydrochlorothiazide 25 mg tablet 25 mg PO QDAY stone prevention #30 10/29/23 tabs tramadol 50 mg tablet 50 mg PO BID PRN pain (scale score 10/29/23 7-10) #20 tabs acetaminophen 500 mg capsule 1,000 mg (2 x 500 mg) PO Q6H PRN 12/04/23 fever or pain #30 caps ciprofloxacin HCl 500 mg tablet 500 mg PO Q12H #14 tabs 12/04/23 (Cipro) ibuprofen 800 mg tablet 800 mg PO TID PRN pain #30 tabs 12/04/23 acetaminophen 300 mg-codeine 30 mg 2 tab PO TID PRN pain #20 tabs 06/04/24 tablet cefdinir 300 mg capsule 300 mg PO BID #14 caps 06/04/24 metoprolol succinate 100 mg 100 mg PO QDAY #30 ea 10/21/24 capsule sprinkle, ext. release 24 hr Allergies Allergy/AdvReac Type Severity Reaction Status Date / Time amoxicillin Allergy Intermediate Hives Verified 11/11/24 17:02 Penicillins Allergy Intermediate Hives Verified 11/11/24 17:02 egg Allergy Mild Nausea Verified 11/11/24 17:02 peas Allergy Mild Rash Verified 11/11/24 17:02 Review of Systems Review of Systems Systems Reviewed: All systems reviewed, normal except as documented Past Medical History Past Medical History NEUROLOGIC: Negative Neurological Disorders CARDIAC: Positive Hypercholesterolemia and Hypertension; Negative Congestive Heart Failure RESPIRATORY: Negative Chronic Obstructive Pulmonary Disease (COPD) GASTROINTESTINAL: Negative Gastrointestinal Disorders GENITOURINARY: Positive Genitourinary Disorders and Kidney Stones; Negative Renal Disease or Polycystic Kidney Disease ENDOCRINE: Negative Diabetes Mellitus Type 1 or Diabetes Mellitus Type 2 HEMATOLOGIC: Negative Blood Disorders PSYCHO/SOCIAL: Positive Depression and Attention Deficit Hyperactivity Disorder OTHER HISTORY: Negative Autoimmune Disease, Blood Transfusions, Anesthesia Reactions or Cancer Surgical History SURGICAL: Positive Tubal Ligation and Section; Negative Cardiac Surgery or Abdominal Surgery Social History SMOKING STATUS: Current some day smoker SUBSTANCE USE: does not use ED Exam Narrative Physical exam: As noted in HPI. Course Course Course Narrative: 174: Sepsis alert initiated. Orders made at this time are congruent with ED Adult Sepsis Order List. Re-evaluation is to be completed. I evaluated the patient at 2124. NS IVF ordered at 2128. 2345: NS IVF infused. 0015: Sepsis reassessment performed consisting of lab review, vitals, physical exam including auscultation of heart, lungs, and visual evaluation of capillary refills, mucosal membranes and extremities. Patient met SIRS criteria. WBC, and pro ayo are elevated. Reassessment complete, patient is septic. Quality Measures Possible source: genitourinary Blood cultures ordered: yes Antibiotic ordered: Yes Pertinent labs: 11/11/24 18:20 Lactic Acid 1.2 mMol/L (0.4-2.0) Procalcitonin 5.77 H ng/ml (0.0-0.49) sepsis Orders Category Date Time Status Saline [Insert IV] NOW Care 11/11/24 21:[address] abdomen pelvis wo con Stat Exams 11/11/24 17:48 Completed XR chest 2V Stat Exams 11/11/24 17:48 Completed Blood Culture (Lab) Stat Lab 11/11/24 18:15 Received CBC Stat Lab 11/11/24 18:20 Completed Comprehensive Metabolic Panel Stat Lab 11/11/24 18:20 Completed Free T4 (Free Thyroxine) Stat Lab 11/12/24 05:31 Ordered HCG,Qualitative Serum Stat Lab 11/11/24 18:20 Completed Lactate (Lactic Acid) Stat Lab 11/11/24 18:20 Completed Lipase Stat Lab 11/11/24 18:20 Completed Magnesium Stat Lab 11/12/24 05:31 Ordered Procalcitonin Stat Lab 11/11/24 18:20 Completed TSH [Thyroid Stimulating Hormone] Stat Lab 11/12/24 05:31 Ordered Urinalysis Stat Lab 11/11/24 18:07 Completed Urine Culture Stat Lab 11/11/24 18:07 Received Acetaminophen Ivpb [Ofirmev Inj] Med 11/12/24 01:17 Discontinued 1,000 mg in 100 ml IV X1 Acetaminophen Tab [Tylenol ES Tab] Med 11/11/24 17:48 Discontinued 1,000 mg PO X1 ONE Acetaminophen Tab [Tylenol Tab] Med 11/12/24 03:08 Discontinued 650 mg PO X1 ONE Cefepime Inj [Maxipime Inj] 2 gm Med 11/12/24 03:08 Discontinued SODIUM CHLORIDE 0.9% (Popper) [Ns 0.9% (P)] 50 ml IV X1 Ibuprofen Tab [Motrin Tab] Med 11/12/24 03:08 Discontinued 800 mg PO X1 ONE KCL 10% Liq UDC 15 ML Med 11/11/24 21:01 Discontinued 40 meq PO X1 ONE Ketorolac Inj [Toradol Inj] Med 11/11/24 21:29 Discontinued 30 mg IVP X1 ONE Morphine Inj Med 11/12/24 01:15 Discontinued 4 mg IVP X1 ONE Norepinephrine/NS 16mg/250ml [Levophed in NS 16mg/250ml Med 11/12/24 03:05 Active ] 16 mg in 250 ml IV 0.05 mcg/kg/min Ondansetron Inj [Zofran Inj] Med 11/11/24 21:29 Discontinued 4 mg IVP X1 ONE Ondansetron Inj [Zofran Inj] Med 11/12/24 01:15 Discontinued 4 mg IVP X1 ONE Ondansetron Odt [Zofran Odt] Med 11/11/24 18:02 Discontinued 4 mg PO X1 ONE Sodium Chloride 0.9% 1000 ml [Ns] 1,000 ml Med 11/12/24 02:16 Active IV 250 mls/hr Sodium Chloride 0.9% 1000 ml [Ns] 1,000 ml Med 11/11/24 21:28 Discontinued IV 999 mls/hr Sodium Chloride 0.9% 1000 ml [Ns] 1,000 ml Med 11/11/24 21:29 Discontinued IV 999 mls/hr Sodium Chloride 0.9% 1000 ml [Ns] 1,000 ml Med 11/11/24 21:29 Discontinued IV 999 mls/hr Sodium Chloride 0.9% 1000 ml [Ns] 1,000 ml Med 11/12/24 03:58 Discontinued IV 999 mls/hr Vancomycin Inj 2,000 mg Med 11/12/24 03:08 Active Sodium Chloride 0.9% 500 ml [Ns] 500 ml IV X1 cefTRIAXone/D5w 1gm IV premix [Rocephin/D5w 1gm IV Med 11/11/24 21:28 Discontinued premix] 1 gm in 50 ml IV X1 Vital Signs Vital signs: Vital Signs Temperature 101.2 F H 11/11/24 17:38 Pulse Rate 141 H 11/11/24 17:38 Respiratory Rate 18 11/11/24 17:38 Blood Pressure 137/98 H 11/11/24 17:38 Pulse Oximetry (%) 97 11/11/24 17:38 Oxygen Delivery Method Room Air 11/11/24 17:38 Nausea/Vomiting/Diarrhea MDM Narrative MDM Narrative:: 38yo female presents to the ED for complaints of left flank pain, fever, and chills for the last few days. No radiation or migration. Notes she had a lithotripsy performed in [place] yesterday, but was unable to tolerate the pain, so she came in for evaluation. No nausea, vomiting or diarrhea. No other complaints reported. Patient data External records reviewed:: [facility] previous records (Per chart review, patient was seen here on 10/21/24 for chest pain.) Clinical information provided by:: patient Social determinants that could affect healthcare access:: none Patient has the following chronic illnesses:: HTN, HLD How is presenting disease/condition affected by chronic disease/condition?: uneffected by Evaluation data The following diagnostics were reviewed and interpreted by me:: lab results, radiology exam(s) and EKG tracing(s) Lab and/or radiology exams considered but not ordered:: none Interpretation Summary: I reviewed all diagnostic test results. My interpretation of the chest x-ray is NAD. My review of the CT abdomen pelvis report is NAD. Blood tests remarkable for WBC 13.5, Potassium 3.3, Creatinine 1.8, Procalcitonin 5.77. UA showed 2+ protein, 313 RBC, and 486 WBC. Medications / Prescriptions Medications / Prescriptions considered but not ordered:: none Medication administrations:: Medication Administration History Sodium Chloride (Ns) 1,000 mls @ 250 mls/hr IV .Q4H ONE Stop: 11/12/24 06:15 Last Infusion: 11/12/24 04:35 Dose: 250 mls/hr Documented By: Admin: 11/12/24 02:24 Dose: 250 mls/hr Documented By: DT Norepinephrine Bitartrate (Levophed In Ns 16mg/250ml) 16 mg in 250 mls @ 3.722 mls/hr IV .Q24H PRN; Protocol PRN Reason: PER PROTOCOL Stop: 12/12/24 03:04 Last Titration: 11/12/24 05:30 Dose: 0.09 mcg/kg/min, 6.7 mls/hr Documented By: Titration: 11/12/24 05:25 Dose: 0.09 mcg/kg/min, 6.7 mls/hr Documented By: Titration: 11/12/24 05:20 Dose: 0.09 mcg/kg/min, 6.7 mls/hr Documented By: Titration: 11/12/24 05:15 Dose: 0.07 mcg/kg/min, 5.211 mls/hr Documented By: Titration: 11/12/24 05:10 Dose: 0.07 mcg/kg/min, 5.211 mls/hr Documented By: Titration: 11/12/24 05:05 Dose: 0.05 mcg/kg/min, 3.722 mls/hr Documented By: Titration: 11/12/24 05:00 Dose: 0.05 mcg/kg/min, 3.722 mls/hr Documented By: Titration: 11/12/24 04:55 Dose: 0.05 mcg/kg/min, 3.722 mls/hr Documented By: Titration: 11/12/24 04:50 Dose: 0.03 mcg/kg/min, 2.233 mls/hr Documented By: Titration: 11/12/24 04:45 Dose: 0.03 mcg/kg/min, 2.233 mls/hr Documented By: Titration: 11/12/24 04:40 Dose: 0.03 mcg/kg/min, 2.233 mls/hr Documented By: Admin: 11/12/24 04:35 Dose: 0.05 mcg/kg/min, 3.722 mls/hr Documented By: DT Vancomycin HCl 2,000 mg/ (Sodium Chloride) 500 mls @ 150 mls/hr IV X1 ONE Stop: 11/12/24 06:27 Last Infusion: 11/12/24 04:35 Dose: 150 mls/hr Documented By: Admin: 11/12/24 04:01 Dose: 150 mls/hr Documented By: DT Discontinued Medications Acetaminophen (Acetaminophen 500 Mg Tablet) 1,000 mg PO X1 ONE Stop: 11/11/24 17:49 Last Admin: 11/11/24 17:59 Dose: 1,000 mg Documented By: Acetaminophen (Acetaminophen 325 Mg Tablet) 650 mg PO X1 ONE Stop: 11/12/24 03:09 Last Admin: 11/12/24 03:31 Dose: 650 mg Documented By: DT Ceftriaxone Sodium/Dextrose (Rocephin/D5w 1gm Iv Premix) 1 gm in 50 mls @ 100 mls/hr IV X1 ONE Stop: 11/11/24 21:57 Last Infusion: 11/11/24 23:11 Dose: Infused Documented By: Admin: 11/11/24 22:32 Dose: 100 mls/hr Documented By: BD Sodium Chloride (Ns) 1,000 mls @ 999 mls/hr IV .Q1H1M ONE Stop: 11/11/24 22:28 Last Infusion: 11/11/24 23:45 Dose: Infused Documented By: Admin: 11/11/24 22:32 Dose: 999 mls/hr Documented By: BD Sodium Chloride (Ns) 1,000 mls @ 999 mls/hr IV .Q1H1M ONE Stop: 11/11/24 22:29 Last Infusion: 11/11/24 23:45 Dose: Infused Documented By: Admin: 11/11/24 22:33 Dose: 999 mls/hr Documented By: BD Sodium Chloride (Ns) 1,000 mls @ 999 mls/hr IV .Q1H1M ONE Stop: 11/11/24 22:29 Last Infusion: 11/12/24 00:35 Dose: Infused Documented By: Admin: 11/11/24 23:43 Dose: 999 mls/hr Documented By: DT Acetaminophen (Ofirmev Inj) 1,000 mg in 100 mls @ 250 mls/hr IV X1 ONE Stop: 11/12/24 01:40 Last Infusion: 11/12/24 01:52 Dose: Infused Documented By: Admin: 11/12/24 01:28 Dose: 250 mls/hr Documented By: DT Cefepime HCl 2 gm/ Sodium (Chloride) 50 mls @ 100 mls/hr IV X1 ONE Stop: 11/12/24 03:37 Last Infusion: 11/12/24 04:03 Dose: Infused Documented By: Admin: 11/12/24 03:33 Dose: 100 mls/hr Documented By: DT Sodium Chloride (Ns) 1,000 mls @ 999 mls/hr IV .Q1H1M ONE Stop: 11/12/24 04:58 Last Infusion: 11/12/24 05:34 Dose: Infused Documented By: Infusion: 11/12/24 04:35 Dose: 999 mls/hr Documented By: Admin: 11/12/24 04:07 Dose: 999 mls/hr Documented By: DT Ibuprofen (Ibuprofen Tab 400 Mg Tablet) 800 mg PO X1 ONE Stop: 11/12/24 03:09 Last Admin: 11/12/24 03:31 Dose: 800 mg Documented By: DT Ketorolac Tromethamine (Ketorolac Inj 30 Mg/Ml Vial) 30 mg IVP X1 ONE Stop: 11/11/24 21:30 Last Admin: 11/11/24 22:31 Dose: 30 mg Documented By: BD Morphine Sulfate (Morphine Sulf Inj 10 Mg/Ml Vial) 4 mg IVP X1 ONE Stop: 11/12/24 01:16 Last Admin: 11/12/24 01:28 Dose: 4 mg Documented By: DT Ondansetron HCl (Ondansetron Odt 4 Mg Tabrap) 4 mg PO X1 ONE; Protocol Stop: 11/11/24 18:03 Last Admin: 11/11/24 18:12 Dose: 4 mg Documented By: Ondansetron HCl (Ondansetron Inj 2 Mg/Ml Inj 2 Ml) 4 mg IVP X1 ONE; Protocol Stop: 11/11/24 21:30 Last Admin: 11/11/24 22:31 Dose: 4 mg Documented By: BD Ondansetron HCl (Ondansetron Inj 2 Mg/Ml Inj 2 Ml) 4 mg IVP X1 ONE; Protocol Stop: 11/12/24 01:16 Last Admin: 11/12/24 01:29 Dose: 4 mg Documented By: DT Potassium Chloride (Potassium Chloride 10% 20 Meq/15 Ml Udc) 40 meq PO X1 ONE Stop: 11/11/24 21:02 Last Admin: 11/11/24 22:47 Dose: 40 meq Documented By: BD Treatment here included IV fluid, Zofran, Toradol, Tylenol, morphine, Rocephin, oral potassium, and Rocephin. With no improvement, more treatment included cefepime and vancomycin and then Levophed drip. Consultations Consultation(s) initiated? (list below): No Consultation #1 (Physician, Specialty, Details): I discussed the case with our hospitalist.? About the presentation and exam and diagnostics and treatments here.? And possible need of further care in the hospital.? Declined to except the patient due to no urology service here. Diagnosis Nausea Differential Diagnosis: dehydration and other (UTI, pyelonephritis, pneumonia, sepsis, electrolyte abnormalities) Most likely diagnosis given after review of the tests above:: At this point, diagnoses include sepsis, UTI, bilateral ureteral stent placement, NEGAR, and hypokalemia. Admission Indicated Admission indicated?: not indicated Explain why admission is indicated or not indicated:: No urologist service at this facility. Admission Request Was there a request for admission?: No Disposition Plan Disposition Plan: other (specify) (Transferred care to Dr. Guadarrama.) Critical Care Time Critical Care Time Critical Care Time: Yes Total Critical Care Time (min.): 45 Attestation: Due to a high probability of clinically significant, life threatening deterioration, the patient required my highest level of preparedness to intervene emergently and I personally spent this critical care time directly and personally managing the patient. This critical care time included obtaining a history; examining the patient; ordering and review of studies; arranging urgent treatment with development of a management plan; evaluation of patient's response to treatment; frequent reassessment; and discussions with family and other providers. It was exclusive of separately billable procedures and treating other patients and teaching time. Bobby Palacios MD Discharge Plan Prescriptions/Referrals Prescriptions/Med Rec: No Action hydrochlorothiazide 25 mg tablet 25 mg PO QDAY Qty: 30 2RF atomoxetine 40 mg capsule 40 mg PO QDAY Qty: 30 2RF tramadol 50 mg tablet 50 mg PO BID PRN (Reason: pain (scale score 7-10)) Qty: 20 0RF acetaminophen 500 mg capsule 1,000 mg PO Q6H PRN (Reason: fever or pain) Qty: 30 0RF ibuprofen 800 mg tablet 800 mg PO TID PRN (Reason: pain) Qty: 30 0RF ciprofloxacin HCl [Cipro] 500 mg tablet 500 mg PO Q12H Qty: 14 0RF Rx Instructions: administer dose at least 2 hrs before/6 hrs after dairy products, calcium, zinc, and/or iron-containing products metoprolol succinate 100 mg capsule,sprinkle,ER 24hr 100 mg PO QDAY Qty: 30 1RF acetaminophen-codeine 300-30 mg tablet 2 tab PO TID MDD 6 PRN (Reason: pain) Qty: 20 0RF cefdinir 300 mg capsule 300 mg PO BID Qty: 14 0RF Referrals: Vinod Rizzo MD [Primary Care Provider] - In 1 week Problem List Clinical Impression: Sepsis, UTI (urinary tract infection), Ureteral stent present, NEGAR (acute kidney injury), Hypokalemia Patient/Caregiver Discharge Instructions Print Language: Yi
[2024-11-11 22:18] VITALS: TEMP 37.2
[2024-11-11] MEDS: KETOROLAC INJ 30 MG/ML VIAL IVP (22:31)
[2024-11-11] MEDS: ONDANSETRON INJ 2 MG/ML INJ 2 ML 4 MG IVP (22:31)
[2024-11-11] MEDS: cefTRIAXone/D5w 1gm IV premix 1 GM/50 ML BAG IV (22:32)
[2024-11-11] MEDS: SODIUM CHLORIDE 0.9% 1000 ML 1,000 ML 999 ML IV ×3 (22:32→23:43)
[2024-11-11] MEDS: POTASSIUM CHLORIDE 10% 20 MEQ/15 ML UDC 40 MEQ PO (22:47)
[2024-11-11 23:45] VITALS: TEMP 37
[2024-11-11 23:46] VITALS: BP 119/72; PULSE 117; RESP 14; TEMP 37; O2SAT 99
[2024-11-12] VITALS (17 sets, daily range): BP systolic 74–123; BP diastolic 48–90; PULSE 98–130; RESP 14–18; TEMP 37–38.2; O2SAT 94–100
[2024-11-12] MEDS: MORPHINE SULF INJ 10 MG/ML VIAL 4 MG IVP (01:28)
[2024-11-12] MEDS: ACETAMINOPHEN IVPB 1,000 MG/100 ML VIAL 250 MG IV (01:28)
[2024-11-12] MEDS: ONDANSETRON INJ 2 MG/ML INJ 2 ML 4 MG IVP (01:29)
[2024-11-12] MEDS: SODIUM CHLORIDE 0.9% 1000 ML 1,000 ML 250 ML IV (02:24)
--- NOTE | 2024-11-12 03:24 | PC.NURSE ---
This RN asked Dr. Palacios if repeat labs were needed to be drawn on this patient. Per provider not needed at this time.
[2024-11-12] MEDS: ACETAMINOPHEN 325 MG TABLET 650 MG PO (03:31)
[2024-11-12] MEDS: IBUPROFEN TAB 400 MG TABLET 800 MG PO (03:31)
[2024-11-12] MEDS: CEFEPIME INJ 2 GM in SODIUM CHLORIDE 0.9% (Popper) 50 ML IV (03:33)
[2024-11-12] MEDS: Vancomycin Inj 2,000 MG in SODIUM CHLORIDE 0.9% 500 ML 500 ML 150 MG IV (04:01)
[2024-11-12] MEDS: SODIUM CHLORIDE 0.9% 1000 ML 1,000 ML 999 ML IV (04:07)
[2024-11-12] MEDS: Norepinephrine/NS 16mg/250ml 16 MG/250 ML BAG 3.722 MG IV (04:35)
--- NOTE | 2024-11-12 06:28 | PD.EDADDENDU ---
Emergency Room Addendum <Jeny Gomez - Last Filed: 11/12/24 10:29> Addendum Narrative: 0600: Care assumed from Dr. Palacios, the previous shift emergency physician. Past medical, surgical, social and family history reviewed. Vitals and home medications reviewed. I will assume the care of the patient at this time. Please refer to the emergency department record for history and examination from initial visit.? Physical exam by me shows patient under no acute distress at this time. Dr. Palacios discussed the case with hospitalist for possible admission and they declined the patient due to no urology service here. Waiting for Dr. Blanchard, [facility] at [place], to call back. 0812: Discussed test HPI, PMHx, lab, radiology results and/or management with Dr. Rosado. 0815: Discussed test HPI, PMHx, lab, radiology results and/or management with Dr. Jonathan Wright at [facility], who accepted the patient for transfer. 0831: Discussed test HPI, PMHx, lab, radiology results and/or management with Dr. Rosado. <Rei Guadarrama MD - Last Filed: 11/12/24 14:07> Addendum Narrative: 0600: Care assumed from Dr. Palacios, the previous shift emergency physician. Past medical, surgical, social and family history reviewed. Vitals and home medications reviewed. I will assume the care of the patient at this time. Please refer to the emergency department record for history and examination from initial visit.? Physical exam by me shows patient under no acute distress at this time. Dr. Palacios discussed the case with hospitalist for possible admission and they declined the patient due to no urology service here. Waiting for Dr. Blanchard, [facility] at [place], to call back. 0812: Discussed test HPI, PMHx, lab, radiology results and/or management with Dr. Rosado. 0815: Discussed test HPI, PMHx, lab, radiology results and/or management with Dr. Jonathan Wright at [facility], who accepted the patient for transfer. 0831: Discussed test HPI, PMHx, lab, radiology results and/or management with Dr. Rosado. Patient is a 38-year-old who was treated I assumed care at 0600 hrs. this morning for someone who is septic blood pressure was low and tachycardic. She had stents placed bilaterally 2 days ago at [facility] with Dr. Blanchard and started having fevers that night and has gotten worse since that time. Patient was given vancomycin and cefepime and Rocephin antibiotics prior to my assuming care at 0600 hrs. today. Patient is alert awake she is cooperative, lungs are clear abdomen is has no obvious tenderness. Her legs are warm and she does have a faintly palpable radial pulse. Patient is presumed septic since she has pyuria postprocedure and has chronic UTIs and as a matter fact she had Enterococcus growing on her culture we spoke to the transfer nurse at [facility]. Sometimes known as [facility]. Patient systolics were staying in the 70-80 range so I asked the nurse to titrate her more aggressively on the Levophed. My goal was to get the systolic blood pressures over 100. Patient had 2 L of fluid infused by the time I started I gave her another 2 L up to 4 got a second lactic acid came up to 2.4 from 1.2 so I initiated 2 more liters and increased the Levophed. We are trying to transfer this patient back to her doctor's care since we have no urological services here. Because she is hypotensive and somewhat unstable I contacted our critical care doctor Dr. Rosado who came down with the residents and they put in a central line in about that time [facility] called and I spoke with the nurse in detail and then they transferred to Dr. Wright who is the ER doctor there who requested central line and getting the blood pressure higher. Also both the magnesium potassium were low and replacement doses were ordered and the nurse that was going with the patient was post to administer those since the transport has arrived before the magnesium potassium could be given. At the time of transfer patient blood pressure was over 100 the Levophed had been titrated up for systolics in the low 100s. Patient had 6 L of fluid at that time. She noted a second CMP came back with interval worsening of bicarb on the CMP. Potassium was 3.0 and the magnesium was low at 1.2. Spent a lot of time talking with various specialist and arranging this transfer and managing the sepsis and hypotension. Patient was taken to [facility] for their ICU care and have urological services. Critical Care Time <Jeny Gomez - Last Filed: 11/12/24 10:29> Critical Care Time Critical Care Time: Yes Total Critical Care Time (min.): 60 Attestation: The high probability of sudden, clinically significant deterioration in the patient?s condition required the highest level of my preparedness to intervene urgently. The services I provided to this patient were to treat and/or prevent clinically significant deterioration. Services included the following: chart data review, reviewing nursing notes and/or old charts, documentation time, eyewear consultant collaboration regarding findings and treatment options, medication orders and management, direct patient care, vital sign assessments and ordering, interpreting and reviewing diagnostic studies and lab tests. Aggregate critical care time includes only time during which I was engaged in work directly related to the patient?s care, as described above, whether at bedside or elsewhere in the Emergency Department. It did not include time spent performing other reported procedures or the services of residents, students, nurses or physician assistants. Results <Jeny Gomez - Last Filed: 11/12/24 10:29> Objective Laboratory: Laboratory Last Values WBC 11.5 Thou/mm3 (3.6-11.0) H 11/12/24 06:11 RBC 3.18 Miln/mm3 (4.00-5.20) L 11/12/24 06:11 Hgb 7.2 g/dL (12.0-16.0) L D 11/12/24 06:11 Hct 23.0 % (36.0-46.0) L 11/12/24 06:11 MCV 72 fL (80-100) L 11/12/24 06:11 MCH 22.6 pg (25.0-35.0) L 11/12/24 06:11 MCHC 31.3 g/dl (31.0-37.0) 11/12/24 06:11 RDW Std Deviation 51.2 fL (36.4-46.3) H 11/12/24 06:11 Plt Count 221 Thou/mm3 (140-440) D 11/12/24 06:11 Neut % (Auto) 86 % (37-80) H 11/12/24 06:11 Lymph % (Auto) 8 % (10-50) L 11/12/24 06:11 Mills % (Auto) 6 % (0-12) 11/12/24 06:11 Eos % (Auto) 0 % (0-10) 11/12/24 06:11 Baso % (Auto) 0 % (0-2.5) 11/12/24 06:11 Neut # (Auto) 9.9 Thou/mm3 (1.8-7.7) H 11/12/24 06:11 Lymph # (Auto) 0.9 Thou/mm3 (1.0-4.8) L 11/12/24 06:11 Mills # (Auto) 0.7 Thou/mm3 (0.0-0.8) 11/12/24 06:11 Eos # (Auto) 0.0 Thou/mm3 (0.0-0.5) 11/12/24 06:11 Baso # (Auto) 0.0 Thou/mm3 (0.0-0.2) 11/12/24 06:11 Immature Gran # (Auto) 0.09 Thou/mm3 (0.00-0.00) H 11/12/24 06:11 Absolute Nucleated RBC 0.00 Thou/mm3 (0.00-0.00) 11/12/24 06:11 Immature Gran % 1 % (0-0) H 11/12/24 06:11 Nucleated RBC % 0 /100 WBC (0) 11/12/24 06:11 Sodium 134 mMol/L (136-145) L 11/11/24 18:20 Potassium 3.3 mMol/L (3.4-5.1) L 11/11/24 18:20 Chloride 101 mMol/L (98-107) 11/11/24 18:20 Carbon Dioxide 23.5 mMol/L (20.0-31.0) 11/11/24 18:20 Anion Gap 10 (7-16) 11/11/24 18:20 BUN 9 mg/dL (9-23) 11/11/24 18:20 Creatinine 1.8 mg/dL (0.6-1.3) H 11/11/24 18:20 Estim Creat Clear Calc 44.2 mL/min (>60) L 11/11/24 18:20 eGFR 36 See Note (60-) L 11/11/24 18:20 BUN/Creatinine Ratio 5 Ratio (12-20) L 11/11/24 18:20 Glucose 148 mg/dL (74-106) H 11/11/24 18:20 Calculated Osmolality 269 (275-295) L 11/11/24 18:20 Lactic Acid 2.4 mMol/L (0.4-2.0) H 11/12/24 06:11 Calcium 9.2 mg/dL (8.3-10.6) 11/11/24 18:20 Corrected Calcium 9.2 mg/dL (8.5-10.1) 11/11/24 18:20 Magnesium 1.2 mg/dL (1.6-2.6) L 11/12/24 05:52 Total Bilirubin 0.5 mg/dL (0.3-1.2) 11/11/24 18:20 AST 19 U/L (0-34) 11/11/24 18:20 ALT 10 U/L (10-49) 11/11/24 18:20 Alkaline Phosphatase 104 U/L (46-116) 11/11/24 18:20 Total Protein 7.2 gm/dL (5.7-8.2) 11/11/24 18:20 Albumin 4.5 gm/dL (3.5-5.0) 11/11/24 18:20 Globulin 2.7 gm/dL (2.3-3.5) 11/11/24 18:20 Albumin/Globulin Ratio 1.7 (1.2-2.2) 11/11/24 18:20 Lipase 25 U/L (12-53) 11/11/24 18:20 Procalcitonin 5.77 ng/ml (0.0-0.49) H 11/11/24 18:20 TSH 0.45 uIU/mL (0.55-4.78) L 11/12/24 05:52 Free T4 0.89 ng/dL (0.89-1.76) 11/12/24 05:52 HCG, Qual Negative 11/11/24 18:20 Ur Collection Type Clean Catch 11/11/24 18:07 Urine Color Yellow (Lt Yel-Yel) 11/11/24 18:07 Urine Clarity Turbid (Clear/Hazy) A 11/11/24 18:07 Urine pH 7.0 (5.0-7.0) 11/11/24 18:07 Ur Specific [place] 1.013 (1.001-1.035) 11/11/24 18:07 Urine Protein 2+ (Neg - Trace) A 11/11/24 18:07 Urine Glucose (UA) Negative (Negative) 11/11/24 18: Urine Ketones Negative (Negative) 11/11/24 18: Urine Blood 3+ (Negative) A 11/11/24 18:07 Urine Nitrite Negative (Negative) 11/11/24 18: Urine Bilirubin Negative (Negative) 11/11/24 18: Urine Urobilinogen (Auto) Negative mg/dL (0.0-1.0) 11/11/24 18:07 Ur Leukocyte Esterase Positive (Negative) 11/11/24 18:07 Urine RBC 313 /hpf (0-3) H 11/11/24 18:07 Urine WBC 486 /hpf (0-5) H 11/11/24 18:07 Ur Squamous Epith Cells 19 /hpf (0-5) H 11/11/24 18:07 Ur Transition Epith Cell 1 /hpf (0-5) 11/11/24 18:07 Urine Bacteria None (None) 11/11/24 18:07 Imaging: EKG: Dated 11/12/2024 at 0610 hours. 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 IMPRESSION: No change in nodular parenchymal disease in the left upper lobe compared to chest films dating to December 03, 2023, clinical correlation advised Follow-up elective CT chest without contrast would be helpful in assessing the nature of the parenchymal disease in the left upper lobe Dictated By: Gamaliel Elizabeth MD Procedure(s): CT abdomen pelvis [place] [facility] [place] Accession Number(s): [id number] cc: Hanane (LENI),Rubén FARRAR; Vinod Rizzo MD; Gamaliel Elizabeth MD~ Examination: CT abdomen and pelvis without contrast. Coronal 3-D reconstructions. Sagittal 2-D reconstructions. Date and time of exam:November 11, 2024 1940 hours Comparison June 04, 2024 INDICATIONS: Bilateral abdominal pain today Technique: Axial images of the abdomen have been obtained, 3 mm slice thickness Intravenous contrast material has not been administered. Low dose protocols were performed. One or more of the following dose reduction techniques were used; automated exposure control, adjustment of the mA and/or KV according to patient size, use of iterative reconstruction technique. Findings: Small benign liver cysts Contracted gallbladder No pancreatic mass Numerous bilateral renal calculi with perinephric stranding Ureteral stents noted no hydronephrosis No bowel obstruction Normal appendix Anteverted uterus No diverticulitis Air in the urinary bladder Urinary bladder wall thickening up to 4 mm IMPRESSION: Numerous bilateral renal calculi, no hydronephrosis Ureteral stents satisfactory position Dictated By: Gamaliel Elizabeth MD <Rei Guadarrama MD - Last Filed: 11/12/24 14:07> Objective Laboratory: Laboratory Last Values WBC 11.5 Thou/mm3 (3.6-11.0) H 11/12/24 06:11 RBC 3.18 Miln/mm3 (4.00-5.20) L 11/12/24 06:11 Hgb 7.2 g/dL (12.0-16.0) L D 11/12/24 06:11 Hct 23.0 % (36.0-46.0) L 11/12/24 06:11 MCV 72 fL (80-100) L 11/12/24 06:11 MCH 22.6 pg (25.0-35.0) L 11/12/24 06:11 MCHC 31.3 g/dl (31.0-37.0) 11/12/24 06:11 RDW Std Deviation 51.2 fL (36.4-46.3) H 11/12/24 06:11 Plt Count 221 Thou/mm3 (140-440) D 11/12/24 06:11 Neut % (Auto) 86 % (37-80) H 11/12/24 06:11 Lymph % (Auto) 8 % (10-50) L 11/12/24 06:11 Mills % (Auto) 6 % (0-12) 11/12/24 06:11 Eos % (Auto) 0 % (0-10) 11/12/24 06:11 Baso % (Auto) 0 % (0-2.5) 11/12/24 06:11 Neut # (Auto) 9.9 Thou/mm3 (1.8-7.7) H 11/12/24 06:11 Lymph # (Auto) 0.9 Thou/mm3 (1.0-4.8) L 11/12/24 06:11 Mills # (Auto) 0.7 Thou/mm3 (0.0-0.8) 11/12/24 06:11 Eos # (Auto) 0.0 Thou/mm3 (0.0-0.5) 11/12/24 06:11 Baso # (Auto) 0.0 Thou/mm3 (0.0-0.2) 11/12/24 06:11 Immature Gran # (Auto) 0.09 Thou/mm3 (0.00-0.00) H 11/12/24 06:11 Absolute Nucleated RBC 0.00 Thou/mm3 (0.00-0.00) 11/12/24 06:11 Immature Gran % 1 % (0-0) H 11/12/24 06:11 Nucleated RBC % 0 /100 WBC (0) 11/12/24 06:11 Sodium 134 mMol/L (136-145) L 11/11/24 18:20 Potassium 3.3 mMol/L (3.4-5.1) L 11/11/24 18:20 Chloride 101 mMol/L (98-107) 11/11/24 18:20 Carbon Dioxide 23.5 mMol/L (20.0-31.0) 11/11/24 18:20 Anion Gap 10 (7-16) 11/11/24 18:20 BUN 9 mg/dL (9-23) 11/11/24 18:20 Creatinine 1.8 mg/dL (0.6-1.3) H 11/11/24 18:20 Estim Creat Clear Calc 44.2 mL/min (>60) L 11/11/24 18:20 eGFR 36 See Note (60-) L 11/11/24 18:20 BUN/Creatinine Ratio 5 Ratio (12-20) L 11/11/24 18:20 Glucose 148 mg/dL (74-106) H 11/11/24 18:20 Calculated Osmolality 269 (275-295) L 11/11/24 18:20 Lactic Acid 2.4 mMol/L (0.4-2.0) H 11/12/24 06:11 Calcium 9.2 mg/dL (8.3-10.6) 11/11/24 18:20 Corrected Calcium 9.2 mg/dL (8.5-10.1) 11/11/24 18:20 Magnesium 1.2 mg/dL (1.6-2.6) L 11/12/24 05:52 Total Bilirubin 0.5 mg/dL (0.3-1.2) 11/11/24 18:20 AST 19 U/L (0-34) 11/11/24 18:20 ALT 10 U/L (10-49) 11/11/24 18:20 Alkaline Phosphatase 104 U/L (46-116) 11/11/24 18:20 Total Protein 7.2 gm/dL (5.7-8.2) 11/11/24 18:20 Albumin 4.5 gm/dL (3.5-5.0) 11/11/24 18:20 Globulin 2.7 gm/dL (2.3-3.5) 11/11/24 18:20 Albumin/Globulin Ratio 1.7 (1.2-2.2) 11/11/24 18:20 Lipase 25 U/L (12-53) 11/11/24 18:20 Procalcitonin 5.77 ng/ml (0.0-0.49) H 11/11/24 18:20 TSH 0.45 uIU/mL (0.55-4.78) L 11/12/24 05:52 Free T4 0.89 ng/dL (0.89-1.76) 11/12/24 05:52 HCG, Qual Negative 11/11/24 18:20 Ur Collection Type Clean Catch 11/11/24 18:07 Urine Color Yellow (Lt Yel-Yel) 11/11/24 18:07 Urine Clarity Turbid (Clear/Hazy) A 11/11/24 18:07 Urine pH 7.0 (5.0-7.0) 11/11/24 18:07 Ur Specific [place] 1.013 (1.001-1.035) 11/11/24 18:07 Urine Protein 2+ (Neg - Trace) A 11/11/24 18:07 Urine Glucose (UA) Negative (Negative) 11/11/24 18:07 Urine Ketones Negative (Negative) 11/11/24 18:07 Urine Blood 3+ (Negative) A 11/11/24 18:07 Urine Nitrite Negative (Negative) 11/11/24 18:07 Urine Bilirubin Negative (Negative) 11/11/24 18:07 Urine Urobilinogen (Auto) Negative mg/dL (0.0-1.0) 11/11/24 18:07 Ur Leukocyte Esterase Positive (Negative) 11/11/24 18:07 Urine RBC 313 /hpf (0-3) H 11/11/24 18:07 Urine WBC 486 /hpf (0-5) H 11/11/24 18:07 Ur Squamous Epith Cells 19 /hpf (0-5) H 11/11/24 18:07 Ur Transition Epith Cell 1 /hpf (0-5) 11/11/24 18:07 Urine Bacteria None (None) 11/11/24 18:07
--- NOTE | 2024-11-12 06:39 | PC.NURSE ---
[id number] CONTACTED IMAGES SENT PKT SENT.
[2024-11-12 06:42] LABS: Free T4 (Free Thyroxine) 0.89 ng/dL (0.89-1.76); Magnesium 1.2 mg/dL (1.6-2.6); Thyroid Stimulating Hormone 0.45 uIU/mL (0.55-4.78)
[2024-11-12 06:43] LABS: Lactate (Lactic Acid) 2.4 mMol/L (0.4-2.0)
[2024-11-12 06:53] LABS: Basophils % (Auto) 0 % (0-2.5); Eosinophils % (Auto) 0 % (0-10); Immature Granulocytes % (Auto) 1 % (0-0); Immature Granulocytes Auto 0.09 Thou/mm3 (0.00-0.00); Lymphocytes # (Auto) 0.9 Thou/mm3 (1.0-4.8); Lymphocytes % (Auto) 8 % (10-50); Mean Corpuscular HGB Conc 31.3 g/dl (31.0-37.0); Mean Corpuscular Hemoglobin 22.6 pg (25.0-35.0); Mean Corpuscular Volume 72 fL (80-100); Monocytes # (Auto) 0.7 Thou/mm3 (0.0-0.8); Monocytes % (Auto) 6 % (0-12); Neutrophils # (Auto) 9.9 Thou/mm3 (1.8-7.7); Neutrophils % (Auto) 86 % (37-80); Nucleated Red Blood Cell % 0 /100 WBC (0); Platelet Count 221 Thou/mm3 (140-440); RDW Standard Deviation 51.2 fL (36.4-46.3); Red Blood Count 3.18 Miln/mm3 (4.00-5.20); White Blood Count 11.5 Thou/mm3 (3.6-11.0)
[2024-11-12 07:09] LABS: Hemoglobin 7.2 g/dL (12.0-16.0)
[2024-11-12 07:26] LABS: Alanine Aminotransferase 12 U/L (10-49); Albumin, Serum 3.1 gm/dL (3.5-5.0); Albumin/Globulin Ratio 2.1 (1.2-2.2); Alkaline Phosphatase 67 U/L (46-116); Anion Gap 10 (7-16); Aspartate Amino Transferase 31 U/L (0-34); BUN/Creatinine Ratio 7 Ratio (12-20); Bilirubin,Total 0.4 mg/dL (0.3-1.2); Blood Urea Nitrogen 13 mg/dL (9-23); Calcium (Corrected) 7.6 mg/dL (8.5-10.1); Carbon Dioxide 17.9 mMol/L (20.0-31.0); Chloride 110 mMol/L (98-107); Creatinine (Component) 1.9 mg/dL (0.6-1.3); Estimated Creatinine Clearance 41.8 mL/min (>60); Globulin 1.5 gm/dL (2.3-3.5); Glucose 156 mg/dL (74-106); Osmolality,Calculated 278 (275-295); Sodium 138 mMol/L (136-145); Total Protein 4.6 gm/dL (5.7-8.2); eGFR 34 See Note
[2024-11-12 07:28] LABS: Calcium 6.9 mg/dL (8.3-10.6)
--- NOTE | 2024-11-12 07:30 | PC.NURSE ---
Pt refuses order for barrett cath. Bedside commode placed at bedside with measuring hat. Pt asked to use call light each time she needs to use bedside commode to assist and assess urine output.
[2024-11-12 07:53] LABS: Collection Type, Urine Catheter
[2024-11-12 08:13] LABS: Bilirubin,Urine Negative (Negative); Blood,Urine 3+ (Negative); Clarity,Urine Turbid (Clear/Hazy); Color,Urine Yellow (Lt Yel-Yel); Glucose, Urine Negative (Negative); Ketones,Urine Negative (Negative); Leukocyte Esterase,Urine Positive (Negative); Nitrite,Urine Negative (Negative); Protein,Urine 2+ (Neg - Trace); RBC,Urine 207 /hpf (0-3); Specific Gravity,Urine 1.017 (1.001-1.035); Squamous Epithelial Cell,Urine 6 /hpf (0-5); Urobilinogen,Urine Negative mg/dL (0.0-1.0); WBC,Urine 511 /hpf (0-5)
--- NOTE | 2024-11-12 08:15 | PC.NURSE ---
PER DR LORENZO, TITRATE LEVOPHED TILL SBP IS GREATER THAN 95.
--- NOTE | 2024-11-12 08:30 | PC.NURSE ---
DR. FREIRE AND DR. MEAD AT BEDSIDE TO PERFORM CENTRAL LINE PLACEMENT. CONSENT FORM SIGNED.
--- NOTE | 2024-11-12 08:40 | PC.NURSE ---
PT accepted to [facility]. Dr. Jonathan Wright accepts [phone], request to call with bp Prior to transport.
--- NOTE | 2024-11-12 09:00 | ESOP_ITS ---
<Statement entered by Alejandro Rosado MD - 11/13/24 13:50> Attending attestation: I was present for entire procedure. Patient tolerated procedure well with no immediate complications. Follow-up chest x-ray to determine adequate placement and exclude presence of pneumothorax when available. Procedures Procedure Date / Time 11/12/24 0952 Procedure Narrative Procedure Narrative: PROCEDURE: Right IJ vascular catheter INDICATION: Levophed infusion for septic shock PROCEDURE DIABETES TERRITORY MANAGER : Dr Wise ATTENDING PHYSICIAN : Dr Rosado CONSENT : Informed consent was obtained from patient, with discussion regarding the procedure, or treatment including: a. Nature of the procedure or treatment and who will perform the procedure or treatment b. Necessity for procedure and the possible benefits. c. Risks and complications (most common and serious) d. Alternative treatments and the risks, benefits and side effects of each (including no treatment). e. Likelihood of the patient achieving his/her goals without this procedure and surgery treatment f. Problems that might occur during the recuperation g. Conflicts of interest, if any PROCEDURE SUMMARY: The Central Line Venous Catheter Insertion Practices form was completed. Starting with the first handwash prior to starting sterile technique. A time out was performed . My hands were washed immediately prior to the procedure. I wore a surgical cap, mask with protective eyewear, full gown and sterile gloves throughout the procedure. The patient was placed in Trendelenburg position. RIGHT chest region was prepped using chlorhexidine scrub and draped in sterile fashion using a full drape and sterile probe cover and sterile gel employed. The medial and lateral heads of the sternocliedomastoid muscle were identified as was the carotid pulse. The Right Internal Jugular vein was identified using the ultrasound. Anesthesia was achieved over the vein using 1% lidocaine. Using real-time out of plane guidance, the introducer needle was inserted into the Right Internal Jugular Vein by ultrasound. A small incision was made at the skin surface with a scalpel and the introducer needle was exchanged for a dilator over the guidewire. After appropriate dilation was obtained, the dilator was exchanged over the wire for a central venous catheter. The wire was removed and the catheter was sutured in place at 0.2 - 0.3 cm. A sterile sobraview shield was placed over the catheter at the insertion site. The patient tolerated the procedure without any hemodynamic compromise. At time of procedure completion, all ports aspirated and flushed properly. Estimated blood loss is ~ 5 ml. Post-procedure chest x-ray confirmed appropriate placement Under the supervision of my attending Dr Alonzo Wise MD ([id number])
--- NOTE | 2024-11-12 09:06 | XR_ITS ---
Examination: AP chest single view Technique: AP portable semiupright chest single view Date and time: November 12, 2024 0916 hrs. Comparison November 11, 2024 Indications: Post central line placement Findings: Right internal jugular central line tip SVC satisfactory position Mild enlargement cardiac contour Vascular congestion Impression: Right internal jugular central line tip SVC satisfactory position
--- NOTE | 2024-11-12 09:27 | PD.RESCONSUL ---
HPI Data of Consult Patient: new to practice Consult date: 11/12/24 Requesting Physician: Dr. Rei Young Attending Provider: Dr. Alejandro Rosado Primary Care Provider: Vinod Rizzo MD Consult Narrative Reason for consult: Septic Shock History of present illness: REASON FOR CONSULTATION: Septic shock secondary to pyelolonephritis due to b/l ureteral stents ESTABLISHED DIAGNOSES: 1. History of b/l renal calculi s/p b/l ureteral stents HISTORY OF PRESENT ILLNESS : Patient 38-year-old female with past medical history of medullary sponge kidney and numerous bilateral renal calculi s/p lithotripsy and B/R ureteral stents placed 2 days ago at [facility] presenting today with bilateral flank pain and fever. According to the patient after her procedure 2 days ago she went home and started to develop flank pain associated with subjective fever. Also associated nausea and decreased urine output, denied any vomiting, diarrhea, chest pain/pressure or palpitations. ED course: BP 115/90, pulse 141 , RR 18, temp 101.2 F, SpO2 97% on room air Subsequently patient became hypotensive with maps less than 65 and had to be started on Levophed infusion. In the ED patient received acetaminophen 1 g p.o. x 1, ondansetron 4 Mg p.o. x 2, ketorolac 30 Mg IV x 1, ceftriaxone 1 g IV x 1, normal saline 6L IVF bolus, magnesium sulfate 4 g IV x 1 and KCl 40 mEq p.o. x 1. HOME MEDICATIONS: 1. Metoprolol XL mg p.o. daily 100 2. Macrobid 100 Mg p.o. twice daily LABS: Hb 7.2, HCT 23, WBC 11.5, K3, bicarb 17.9, BUN 13, CR 1.9, LA 2.9, corrected calcium 7.6, Mg 1.2. IMAGING : Abdomen/pelvis CT showed numerous bilateral renal calculi with perinephric stranding, bilateral ureteral stents. No hydronephrosis This x-ray showed no signs of pulmonary edema, consolidation. RIJ catheter in situ, satisfactory position. IMPRESSION: 1. Septic shock secondary to pyelonephritis due to infected B/L ureteral stent RECOMMENDATION: For RIJ central line placement to continue Levophed infusion. Recommend urgent transfer to [facility] for urology consultation/intervention cc:: cc: Review of Systems Review of Systems Narrative Review of Systems: GENERAL: As above HEENT: Denies headaches or visual changes. Denies discharge. Neuro: Denies unusual weakness or difficulty speaking. CARDIO: Denies chest pain or palpitations. PULM: Denies SOB, coughing or wheezing. GI: As above URO: As above E LEARNING DEVELOPER: Denies menstrual changes, hot flashes. MSK/EXT/SKIN: Denies joint/skeletal/muscle pain, issues/changes in upper or lower extremities, itchiness, or superficial pain. PSYCH: Cooperative, pleasant mood & affect. The rest of the review of systems is otherwise negative. Exam Vital Signs Temp Pulse Resp BP Pulse Ox O2 Del Method 98.7 F 108 H 17 90/66 97 Room Air 11/12/24 09:00 11/12/24 09:00 11/12/24 09:00 11/12/24 09:00 11/12/24 09:00 11/12/24 09:00 Narrative Exam Constitutional Alert, oriented x 3 and mild distress. Young female HEENT Vision grossly intact. Patent nares. Trachea midline Respiratory Chest normal on inspection and clear auscultation bilaterally Cardiovascular S1 and S2 audible, RRR. No murmurs carotid bruit. No gross JVD. Abdominal Soft and non tender to palpation in all quadrants. BS + Genitourinary No bladder tenderness, no flank pain. Bilateral flank tenderness. Musculoskeletal Extremities tone within normal limits. No LE edema. Neurological CN II - XII grossly intact. Extremity motor and sensation grossly intact. Skin Warm, dry and intact. No apparent lesions. Psychiatric Patient has sad affect, is cooperative Results Labs 11/12/24 06:11 11/12/24 06:11 Labs: Short CBC 11/11/24 11/12/24 Range/Units 18:20 06:11 WBC 13.5 H 11.5 H (3.6-11.0) Thou/mm3 Hgb 9.9 L 7.2 L D (12.0-16.0) g/dL Hct 31.7 L 23.0 L (36.0-46.0) % Plt Count 322 221 D (140-440) Thou/mm3 BMP 11/11/24 11/12/24 18:20 06:11 Sodium 134 L 138 Potassium 3.3 L 3.0 L Chloride 101 110 H Carbon Dioxide 23.5 17.9 L BUN 9 13 Creatinine 1.8 H 1.9 H Glucose 148 H 156 H Calcium 9.2 6.9 L D Liver Function 11/11/24 11/12/24 Range/Units 18:20 06:11 Total Bilirubin 0.5 0.4 (0.3-1.2) mg/dL AST 19 31 (0-34) U/L ALT 10 12 (10-49) U/L Alkaline Phosphatase 104 67 D (46-116) U/L Albumin 4.5 3.1 L D (3.5-5.0) gm/dL Urine 11/11/24 11/12/24 Range/Units 18:07 07:27 Urine Color Yellow Yellow (Lt Yel-Yel) Urine Clarity Turbid A Turbid A (Clear/Hazy) Urine pH 7.0 7.0 (5.0-7.0) Ur Specific [place] 1.013 1.017 (1.001-1.035) Urine Protein 2+ A 2+ A (Neg - Trace) Urine Glucose (UA) Negative Negative (Negative) Quality Measures Quality Measures sepsis Current suspected stage: septic shock (LA >4 and/or hypotension) IVF 30 ml/kg given for lactic acid >4 and/or hypotension: yes Vasopressors initiated: Yes Sepsis reassessment completed at (date): 11/12/24 Sepsis reassessment completed at (time): 09:52 Possible source: genitourinary Blood cultures ordered: yes Antibiotic ordered: Yes Medications Home Medications and Allergies Allergies Allergy/AdvReac Type Severity Reaction Status Date / Time amoxicillin Allergy Intermediate Hives Verified 11/11/24 17:02 Penicillins Allergy Intermediate Hives Verified 11/11/24 17:02 egg Allergy Mild Nausea Verified 11/11/24 17:02 peas Allergy Mild Rash Verified 11/11/24 17:02 Visit Medications Norepinephrine Bitartrate (Levophed In Ns 16mg/250ml) 16 mg in 250 mls @ 3.722 mls/hr IV .Q24H PRN; Protocol PRN Reason: PER PROTOCOL Stop: 12/12/24 03:04 Last Titration: 11/12/24 09:00 Dose: 0.19 mcg/kg/min, 14.144 mls/hr Discontinued Medications Acetaminophen (Acetaminophen 500 Mg Tablet) 1,000 mg PO X1 ONE Stop: 11/11/24 17:49 Last Admin: 11/11/24 17:59 Dose: 1,000 mg Acetaminophen (Acetaminophen 325 Mg Tablet) 650 mg PO X1 ONE Stop: 11/12/24 03:09 Last Admin: 11/12/24 03:31 Dose: 650 mg Ceftriaxone Sodium/Dextrose (Rocephin/D5w 1gm Iv Premix) 1 gm in 50 mls @ 100 mls/hr IV X1 ONE Stop: 11/11/24 21:57 Last Infusion: 11/11/24 23:11 Dose: Infused Sodium Chloride (Ns) 1,000 mls @ 999 mls/hr IV .Q1H1M ONE Stop: 11/11/24 22:28 Last Infusion: 11/11/24 23:45 Dose: Infused Sodium Chloride (Ns) 1,000 mls @ 999 mls/hr IV .Q1H1M ONE Stop: 11/11/24 22:29 Last Infusion: 11/11/24 23:45 Dose: Infused Sodium Chloride (Ns) 1,000 mls @ 999 mls/hr IV .Q1H1M ONE Stop: 11/11/24 22:29 Last Infusion: 11/12/24 00:35 Dose: Infused Acetaminophen (Ofirmev Inj) 1,000 mg in 100 mls @ 250 mls/hr IV X1 ONE Stop: 11/12/24 01:40 Last Infusion: 11/12/24 01:52 Dose: Infused Sodium Chloride (Ns) 1,000 mls @ 250 mls/hr IV .Q4H ONE Stop: 11/12/24 06:15 Last Infusion: 11/12/24 07:30 Dose: Infused Cefepime HCl 2 gm/ Sodium (Chloride) 50 mls @ 100 mls/hr IV X1 ONE Stop: 11/12/24 03:37 Last Infusion: 11/12/24 04:03 Dose: Infused Vancomycin HCl 2,000 mg/ (Sodium Chloride) 500 mls @ 150 mls/hr IV X1 ONE Stop: 11/12/24 06:27 Last Infusion: 11/12/24 08:13 Dose: Infused Sodium Chloride (Ns) 1,000 mls @ 999 mls/hr IV .Q1H1M ONE Stop: 11/12/24 04:58 Last Infusion: 11/12/24 05:34 Dose: Infused Ibuprofen (Ibuprofen Tab 400 Mg Tablet) 800 mg PO X1 ONE Stop: 11/12/24 03:09 Last Admin: 11/12/24 03:31 Dose: 800 mg Ketorolac Tromethamine (Ketorolac Inj 30 Mg/Ml Vial) 30 mg IVP X1 ONE Stop: 11/11/24 21:30 Last Admin: 11/11/24 22:31 Dose: 30 mg Morphine Sulfate (Morphine Sulf Inj 10 Mg/Ml Vial) 4 mg IVP X1 ONE Stop: 11/12/24 01:16 Last Admin: 11/12/24 01:28 Dose: 4 mg Ondansetron HCl (Ondansetron Odt 4 Mg Tabrap) 4 mg PO X1 ONE; Protocol Stop: 11/11/24 18:03 Last Admin: 11/11/24 18:12 Dose: 4 mg Ondansetron HCl (Ondansetron Inj 2 Mg/Ml Inj 2 Ml) 4 mg IVP X1 ONE; Protocol Stop: 11/11/24 21:30 Last Admin: 11/11/24 22:31 Dose: 4 mg Ondansetron HCl (Ondansetron Inj 2 Mg/Ml Inj 2 Ml) 4 mg IVP X1 ONE; Protocol Stop: 11/12/24 01:16 Last Admin: 11/12/24 01:29 Dose: 4 mg Potassium Chloride (Potassium Chloride 10% 20 Meq/15 Ml Udc) 40 meq PO X1 ONE Stop: 11/11/24 21:02 Last Admin: 11/11/24 22:47 Dose: 40 meq Assessment & Plan Plan Patient 38-year-old female with past medical history of medullary sponge kidney and numerous bilateral renal calculi s/p lithotripsy and B/R ureteral stents placed 2 days ago at [facility] presenting today with bilateral flank pain and fever. ICU team was consulted for septic shock secondary to pyelonephritis due to bilateral ureteral stent. NEURO No acute problems CVS Septic shock secondary to pyelonephritis due to infected ureteral stent DDx: Pyelonephritis, infected ureteral stents Dx: MAP less than 65. Source of infection pyelonephritis requiring Levophed infusion to maintain SBP >100. Lactic acid 2 point Rx: Patient received 6L IVF bolus. Continue Levophed infusion, titrate as necessary. Transfer to [facility] FOR urology consultation/intervention PULM No acute problems GI/Hep Nausea DDx: Secondary to sepsis Rx: Recommend ondansetron 4 Mg IV every 4 hourly as needed RENAL Acute kidney injury prerenal versus renal DDx: Secondary to shock, dehydration, obstruction Dx: CR 1.9 on admission. Baseline 1 Rx: Continue Levophed infusion. For transfer for urology intervention to relieve obstruction Lactic acidosis Due to sepsis. Continue to trend lactic Hypokalemia Hypomagnesemia Hypocalcemia DDx: Likely dilutional DX: K3, Mg 1.2, corrected calcium 7.6 Rx: Calcium carbonate 1 tab x 1, magnesium sulfate 4 g IV x 1, KCl 60 mEq p.o. x 1. HEME/ONC Microcytic anemia DDx: PENNY,dilutional, blood loss, anemia of chronic disease Dx: Hb 9.9?>7.2. Patient received 6L IVF bolus, most likely dilutional on top of pre-existing PENNY/anemia ( Rx: Continue to monitor for signs of bleeding on CBC Leukocytosis DDx: Sepsis, pyelonephritis Dx: WBC 13.5?>11.5 Rx: See ID ENDO No acute problems ID Subjective secondary to pyelonephritis due to infected ureteral stent Received cefepime and vancomycin in the ED. MSK/DERM No acute problems Plan of care discussed with Attending Dr. Alonzo Wise MD PGY 1 Disclaimer: This note was dictated by speech recognition. Minor errors in master coast[employer] yacht may be present due to voice recognition software. Attending Provider Attestation/Addendum Patient seen and examined with above resident, Jordin Wise MD. I agree with the findings, assessment, and plan of care as documented except for any differences below. Patient seen in the emergency department with septic shock secondary to urinary tract infection with bilateral ureteral stent placement. Patient with known history of medullary sponge kidney with frequent renal calculi warranting placement of stents recently. Patient adequately volume resuscitated with bedside ultrasound showing dilated vasculature suggesting no need for additional volume resuscitation. She is requiring vasopressors for blood pressure support to maintain MAP greater than 65 and goal of keeping systolic greater than 100. Patient was able to tolerate placement of right IJ central line which will be used for transport. Patient has been accepted back at prior facility where urology care was being done in [place]. Patient will be transferred from ER to ER as we do not have the same urologic services or interventional radiology services available at our hospital at this time and for continuity of care. Will remain available for any assistance required by the emergency department prior to her transfer. I did adjust orders to ensure adequate hemodynamics for safe transfer and at this point she does not need vasopressor. Appropriate antibiotics have been started. Total critical care time: I personally spent 30 minutes for review of physiologic parameters, directing plan of care throughout morning, coordination of care with other subspecialist, and counseling patient at bedside. This is exclusive of time spent teaching of staff or performing separate billable procedures. Patient required critical care services for septic shock secondary to pyelonephritis. She remains at significant risk for further morbidity and mortality warranting close monitoring and care.
[2024-11-12] MEDS: Norepinephrine/NS 16mg/250ml 16 MG/250 ML BAG 18.611 MG IV (09:30)
[2024-11-12 09:41] LABS: Reflex Lactate? Y
--- NOTE | 2024-11-12 09:58 | PC.CM ---
0930 Packet completed and CD made and given to Gurpreet charge nurse. I called [facility] and set up transport. Pickup time set for 1030. 0913 I spoke to Gurpreet charge nurse to see if patient can go with ride along or does she need air transport. Dr. Lozano stated patient could go with ride along. supervisor burling and joining called in a nurse for a ride along. 0911 I spoke to Ivy transfer nurse at [facility]. She states patient was accepted by Dr. Blanchard and Dr. Wright. Ivy the transfer nurse states they wanted patient to have a central line placed and to have patient continued on Levophed. 0835 Patient needs transfer to [facility] for continuum of care with Dr. Blanchard (Urology). I spoke to the transfer nurse to follow up because ED had already contacted [facility]. I faxed over paperwork.
[2024-11-12 10:09] LABS: Lactic Acid, 3 HR 2.1 mMol/L (0.4-2.0)
--- NOTE | 2024-11-12 10:10 | PC.NURSE ---
EMS HERE TO TRANSFER PT TO [facility]. REPORT GIVEN TO SIVAKUMAR GONSALES FOR TRANSFER AND CALLED TO JUAN MANUEL GONSALES WITH [facility].
[2024-11-12] MEDS: Magnesium Sulfate 4 GM Ivpb 4 GM/50 ML BAG IV (10:27)
[2024-11-12 12:31] LABS: HIV (1&2) Antibody Rapid Non-Reactive
== END 2024-11-12 10:30 | disposition short-term general hospital (02) ==
PROVIDERS: Emergency Medicine; Nurse Practitioner Primary Care; Emergency Provider Emergency Medicine; PCP Family Medicine
DX: A41.9 Sepsis, unspecified organism (principal); N17.9 Acute kidney failure, unspecified; N12 Tubulo-interstitial nephritis, not specified as acute or chronic; E87.6 Hypokalemia; R91.1 Solitary pulmonary nodule; N20.0 Calculus of kidney; Z96.0 Presence of urogenital implants; Z75.1 Person awaiting admission to adequate facility elsewhere
CPT/HCPCS: 36556; 36415; 71046; 74176; 80053; 81001; 83605; 83690; 83735; 84145; 84439; 84443; 84703; 85025; 86703; 87040; 87077; 87086; 87186; 96361; 96365; 96366; 96367; 96375; 96376; 99291; 99292; C1751; J0131; J0692; J0696; J1885; J2270; J2405; J3370; J3475; J3490; J7030; J7050; J7999; Q0162; A9270